=== PATIENT | female | born 1960 | race Caucasian/White ===

== ENCOUNTER 2017-05-12 13:13 | Outpatient (CLI) | payer OTHER ==
--- NOTE | 2017-05-13 15:48 | Mammography Report ---
DIGITAL SCREENING MAMMOGRAM: 05/12/2017 CLINICAL INDICATION: A 56-year-old nulliparous patient with history of bilateral reduction, for lakesha tobar. COMPARISON: 07/2015, 04/2014, 01/2013, 09/2010, 07/2009. TECHNIQUE: Routine CC and MLO projections were obtained of the breasts. FINDINGS: The breasts demonstrate scattered fibroglandular densities bilaterally. Postreduction negrete ges are stable. Coarse and punctate, typically benign calcifications are present. No suspicious brittnee s, clustered microcalcifications, or regions of architectural distortion are identified. IMPRESSION: BENIGN FINDINGS. RECOMMENDATION: ROUTINE ANNUAL SCREENING UNLESS OTHERWISE CLINICALLY INDICATED. BIRADS CATEGORY 2-BENIGN FINDINGS. STANDARD QUALIFYING STATEMENTS 1. This examination was reviewed with the aid of Computer-Aided Detection (CAD). 2. A negative or benign imaging report should not delay biopsy if clinically suspicious findings are present. Consider surgical consultation if warranted. More than 5% of cancers are not identified by i maging. 3. Dense breasts may obscure an underlying neoplasm. JOB #: [id number] EXT JOB #:[id number]
== END 2017-05-12 13:14 | disposition home or self-care (01) ==
LOC: DI 13:13
PROVIDERS: ATTEND Family Medicine
DX: Z12.31 Encounter for screening mammogram for malignant neoplasm of breast (principal)
CPT/HCPCS: 77067

== ENCOUNTER 2017-06-16 22:12 | Emergency (ER) | payer OTHER ==
[2017-06-16] MEDS ORDERED: SODIUM CHLORIDE FLUSH 0.9% 10 ML SYRINGE IVP ONE (22:48)
[2017-06-16] MEDS ORDERED: ONDANSETRON 4 MG/2 ML VIAL IVP STA (22:59)
[2017-06-16 23:07] LABS: BASOPHILS # (AUTO) 0.1 10^3/uL (0.0-0.1); BASOPHILS % (AUTO) 0.5 %; EOSINOPHILS # (AUTO) 0.3 10^3/uL (0.0-0.7); EOSINOPHILS % (AUTO) 1.9 %; HCT - HEMATOCRIT 41.5 % (37.0-47.0); HGB - HEMOGLOBIN 13.9 g/dL (12.0-16.0); LYMPHOCYTES % (AUTO) 29.1 %; MEAN CORPUSCULAR HEMOGLOBIN 27.4 pg (27.0-31.0); MEAN CORPUSCULAR HGB CONC 33.5 g/dL (32.0-36.0); MEAN CORPUSCULAR VOLUME 81.9 fL (81.0-99.0); MEAN PLATELET VOLUME 10.5 fL (7.9-10.8); MONOCYTES % (AUTO) 7.7 %; NEUTROPHILS # (AUTO) 8.3 10^3/uL (1.5-6.6); NEUTROPHILS % (AUTO) 60.8 %; RED BLOOD COUNT 5.07 10^6/uL (4.20-5.40); RED CELL DISTRIBUTION WIDTH 13.4 % (12.0-15.0); UNCORRECTED WHITE BLOOD COUNT 13.6 x10^3/uL; WHITE BLOOD COUNT 13.6 x10^3/uL (4.8-10.8)
--- NOTE | 2017-06-16 23:10 | XRAY Preliminary Report ---
Exam: XR Chest 1 View IMPRESSION: Elevation of the right hemidiaphragm, no acute cardiopulmonary process. [facility] SITE ID: [id number]
--- NOTE | 2017-06-16 23:13 | XRAY Report ---
EXAM: CHEST RADIOGRAPHY EXAM DATE: 06/16/2017 10:51 PM. CLINICAL HISTORY: Chest pain. COMPARISON: None. TECHNIQUE: 1 view. FINDINGS: Lungs/Pleura: Elevated right hemidiaphragm. The visualized lungs are clear. No pleural effusion or pn eumothorax. Mediastinum: Within exam limitations, cardiomediastinal contour is normal. Other: None. IMPRESSION: Elevation of the right hemidiaphragm, no acute cardiopulmonary process. [facility] Referring Provider Line: [phone] SITE ID: [id number]
[2017-06-16 23:18] LABS: ALBUMIN/GLOBULIN RATIO 1.2 (1.0-2.2); BILIRUBIN,TOTAL 0.7 mg/dL (0.2-1.0); CALCIUM 9.2 mg/dL (8.5-10.3); CREATININE 0.7 mg/dL (0.4-1.0); POTASSIUM 3.5 mmol/L (3.5-5.0); TOTAL PROTEIN 7.8 g/dL (6.7-8.2)
[2017-06-16] MEDS ORDERED: ONDANSETRON ODT 4 MG TABLET ONE (23:34)
[2017-06-16] MEDS ORDERED: ONDANSETRON 4 MG/2 ML VIAL ONE (23:36)
[2017-06-17] MEDS ORDERED: ACETAMINOPHEN 500 MG TABLET PO STA (00:06)
[2017-06-17] MEDS ORDERED: ACETAMINOPHEN 500 MG TABLET PO ONE (00:22)
--- NOTE | 2017-06-17 02:04 | ED Physician Documentation ---
PD HPI CHEST PAIN - Stated complaint Stated Complaint: CHEST PRESSURE - Chief complaint Chief Complaint: Cardiac - History obtained from History obtained from: Patient - History of Present Illness Timing - onset: How many hours ago (2) Timing - details: Abrupt onset, Now resolved Quality: Pressure Location: Substernal, Epigastric Worsened by: Eating Associated symptoms: Nausea. No: Shortness of air, Diaphoresis, Vomiting, Feeling faint / dizzy, General Weakness, Palpitations Similar symptoms before: Has not had sx before Recently seen: Not recently seen - Additional information Additional information: Patient is a 57 year old female with a history of borderline diabetes and htn who is presenting to the emergency department for chest pressure. patient states that she had some indigestion that felt like a gas bubble. patient states that the symptoms did not resolve right away and felt like pressure so she came to get checked out. Upon initial evaluation in the emergency department patient denied any acute complaints. Review of Systems Constitutional: denies: Fever, Chills Eyes: denies: Loss of vision, Decreased vision Ears: denies: Ear pain, Drainage/discharge Nose: denies: Rhinorrhea / runny nose, Congestion Throat: denies: Dental pain / toothache, Sore throat Cardiac: reports: Chest pain / pressure. denies: Palpitations, Calf pain Respiratory: denies: Dyspnea, Cough, Wheezing GI: reports: Nausea. denies: Abdominal Pain, Vomiting, Constipation, Diarrhea : denies: Dysuria, Frequency Skin: denies: Rash, Lesions Musculoskeletal: denies: Neck pain, Back pain, Extremity pain Neurologic: denies: Generalized weakness, Focal weakness, Numbness Immunocompromised: denies: Immunocompromised PD PAST MEDICAL HISTORY - Past Medical History Past Medical History: Yes Cardiovascular: Hypertension, Murmur Respiratory: None Endocrine/Autoimmune: Type 2 diabetes, HyPOthyroidism GI: GERD : None HEENT: None Psych: Anxiety Musculoskeletal: Osteoarthritis Derm: Rosacea - Past Surgical History General: Cholecystectomy 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, 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 surgery) HEENT: Other - Present Medications Home Medications: Ambulatory Orders Medication Instructions Recorded Confirmed Alprazolam 0.25 mg PO Q8HR PRN 05/08/15 06/16/17 Ascorbic Acid Chew [Vitamin C] 1,000 mg PO QDAC 05/08/15 06/16/17 Calcium Carb/Vitamin D3/Vit K1 1 each PO DAILY 05/08/15 06/16/17 [Calcium + D Soft Chewable Tab] Fish Oil/Dha/Epa [Fish Oil 1,200 1 each PO QDAC 05/08/15 06/16/17 mg Fish Oil] Hydrochlorothiazide 25 mg PO DAILY 05/08/15 06/16/17 Levothyroxine Sodium 75 mcg PO QDBREAKFAST 05/08/15 06/16/17 Lisinopril 40 mg PO DAILY 05/08/15 06/16/17 Omeprazole 20 mg PO QDAC 05/08/15 06/16/17 Potassium Chloride 10 meq PO DAILY 05/08/15 06/16/17 Pravastatin Sodium 40 mg PO QDAC 05/08/15 06/16/17 metFORMIN [Glucophage] 500 - 1,000 mg PO BIDWM 05/08/15 06/16/17 Amlodipine Besylate [Amlodipine 5 mg ORAL DAILY 06/16/17 06/16/17 Besylate] - Allergies Allergies/Adverse Reactions: Allergies Allergy/AdvReac Type Severity Reaction Status Date / Time acetaminophen AdvReac Nausea Verified 06/16/17 22:26 [From Tylenol-Codeine #3] codeine phosphate * AdvReac Nausea Verified 06/16/17 22:26 [From Tylenol-Codeine #3] - Social History Does the pt smoke?: No Smoking Status: Never smoker PD ED PE NORMAL - Vitals Vital signs reviewed: Yes - General General: Alert and oriented X 3, No acute distress, Well developed/nourished - HEENT HEENT: Atraumatic, PERRL, Moist mucous membranes, Pharynx benign - Neck Neck: Supple, no meningeal sign, No JVD - Cardiac Cardiac: RRR, No murmur - Respiratory Respiratory: No respiratory distress - Abdomen Abdomen: Soft, Non tender, Non distended - Derm Derm: Normal color, Warm and dry, No rash - Extremities Extremities: No deformity, Normal ROM s pain, No calf tenderness / cord - Neuro Neuro: Alert and oriented X 3, No motor deficit, No sensory deficit, Normal speech - Psych Psych: Normal mood, Normal affect Results - Vitals Vitals: Vital Signs - 24 hr 06/16/17 06/16/17 06/17/17 22:23 23:36 00:21 Temperature 36.5 C Heart Rate 74 61 59 L Respiratory 18 13 16 Rate Blood Pressure 183/77 H 152/62 H 136/61 H O2 Saturation 96 94 95 06/17/17 02:04 Temperature Heart Rate 60 Respiratory 14 Rate Blood Pressure 135/58 H O2 Saturation 97 Oxygen O2 Source Room air - EKG (time done) 2234 Rate: Rate (enter#) (63) Rhythm: NSR Shellman: Normal Intervals: LBBB Compare to prior EKG: Old EKG unavailable - Labs Labs: Laboratory Tests 06/16/17 06/16/17 06/16/17 22:48 22:48 22:48 WBC 13.6 H RBC 5.07 Hgb 13.9 Hct 41.5 MCV 81.9 MCH 27.4 MCHC 33.5 RDW 13.4 Plt Count 227 MPV 10.5 Neut # 8.3 H Lymph # 4.0 H Falls # 1.0 Eos # 0.3 Baso # 0.1 Absolute Nucleated RBC 0.00 Nucleated RBCs 0.0 Sodium 138 Potassium 3.5 Chloride 101 Carbon Dioxide 25 Anion Gap 12.0 BUN 12 Creatinine 0.7 Estimated GFR (MDRD) 86 L Glucose 172 H Calcium 9.2 Total Bilirubin 0.7 AST 88 H ALT 146 H Alkaline Phosphatase 89 Troponin I < 0.04 Total Protein 7.8 Albumin 4.2 Globulin 3.6 Albumin/Globulin Ratio 1.2 Lipase 28 06/17/17 01:18 WBC RBC Hgb Hct MCV MCH MCHC RDW Plt Count MPV Neut # Lymph # Falls # Eos # Baso # Absolute Nucleated RBC Nucleated RBCs Sodium Potassium Chloride Carbon Dioxide Anion Gap BUN Creatinine Estimated GFR (MDRD) Glucose Calcium Total Bilirubin AST ALT Alkaline Phosphatase Troponin I < 0.04 Total Protein Albumin Globulin Albumin/Globulin Ratio Lipase - Rads (name of study) chest x-ray Radiology: Final report received (elevation of right hemidiaphragm ) PD MEDICAL DECISION MAKING - ED course Complexity details: reviewed old records, reviewed results, re-evaluated patient , considered differential, d/w patient ED course: Patient was seen and examined at bedside. Patient was well appearing and in no distress. ekg was performed and showed a left bundle branch block which patient states she had before. it was negative via scarbossa's criteria. labs were drawn. chest x-ray showed no acute abnormality. troponin was negative. Patient had a few risk factors and was observed for another 3 hours. repeat troponin remained negative. Patient had low HEART and BENTLEY scores and was stable for outpatient work up. Departure - Departure Disposition: 01 Home, Self Care Clinical Impression: Chest pain Condition: Good Instructions: ED Chest Pain Atypical Unkn Cause Follow-Up: Jace Boyd DO [Primary Care Provider] - Within 3 Days Comments: Your diagnostics today were within normal limits indicating that the pressure is less likely to be cardiac in nature. that being said this is only a snapshot in time. I would recommend follow up with your pmd this week for a stress test and echocardiogram. You can return to the emergency department at any time for new, worsening or uncontrollable symptoms. Discharge Date/Time: 06/17/17 02:10
[2017-06-17 02:07] VITALS: BP 135/58
== END 2017-06-17 02:10 | disposition home or self-care (01) ==
LOC: ED 22:12
DX: R07.9 Chest pain, unspecified (principal); I44.7 Left bundle-branch block, unspecified; R94.31 Abnormal electrocardiogram [ECG] [EKG]; I10 Essential (primary) hypertension; E11.9 Type 2 diabetes mellitus without complications; Z79.84 Long term (current) use of oral hypoglycemic drugs; E03.9 Hypothyroidism, unspecified; K21.9 Gastro-esophageal reflux disease without esophagitis; M19.90 Unspecified osteoarthritis, unspecified site
CPT/HCPCS: 36415; 71010; 80053; 83690; 84484; 85025; 93005; 96374; 99284; 99285; A9270

== ENCOUNTER 2017-07-08 11:08 | Outpatient (CLI) | payer OTHER ==
--- NOTE | 2017-07-08 17:14 | Ultrasound Report ---
RIGHT UPPER QUADRANT ULTRASOUND: 07/08/2017 CLINICAL INDICATION: Abnormal LFTs. TECHNIQUE: Real-time scanning was performed with u.s. representative static images obtained. FINDINGS: The liver measures 12.9 cm. Hepatic echogenicity is diffusely increased, compatible with fatty infiltration. No focal parenchymal lesion or intrahepatic biliary dilatation is seen. The com mon bile duct measures 5 mm. The patient is status post cholecystectomy. The right kidney measures 11.5 cm, and demonstrates a small extrarenal pelvis. No free fluid is present. IMPRESSION: FATTY INFILTRATION OF THE LIVER. JOB #: [id number] EXT JOB #:[id number]
== END 2017-07-08 11:09 | disposition home or self-care (01) ==
LOC: DI 11:08
PROVIDERS: ATTEND Family Medicine
DX: R94.5 Abnormal results of liver function studies (principal); K76.0 Fatty (change of) liver, not elsewhere classified
CPT/HCPCS: 76705

== ENCOUNTER 2017-08-05 11:08 | Outpatient (CLI) | payer OTHER ==
--- NOTE | 2017-08-05 15:52 | CARDIAC PROCEDURE NOTE ---
DATE OF SERVICE: 08/05/2017 00:00:00 PRIMARY CARE PHYSICIAN: Jace Boyd DO. PROCEDURE: Treadmill MPS. REASON FOR PROCEDURE: Atypical chest pain. CARDIAC RISK FACTORS: Include age, diabetes, hypertension, and hyperlipidemia. PREVIOUS CARDIAC PROCEDURES: None. CLINICAL HISTORY: A 57-year-old female without known coronary artery disease. INITIAL RESTING VITAL SIGNS: Blood pressure 142/80, heart rate 76, height 64 inches, weight 220 pounds, BMI 37.8. PROCEDURE AND FINDINGS: The patient's identity and date verified. Consent signed. The patient performed treadmill exercise using a William protocol completing 7 minutes 19 seconds and completing an estimated workload of 7.5 metabolic equivalents. Maximum blood pressure was 200/76 with a heart rate of 138 beats per minute or 85% of maximum predicted heart rate for age. The blood pressure response to exercise was within normal limits. The patient stopped because she was tiring and she exercised for a full 60 seconds after Cardiolite was injected. The resting ECG demonstrated normal sinus rhythm with left bundle branch abnormality. ST segment depression could not be evaluated due to left bundle branch block. There was rare PA-C ectopy; 1 minute recovery heart rate was within normal limits. FINAL IMPRESSION 1. Nondiagnostic stress electrocardiogram for ischemia due to presence of left bundle branch block. 2. Negative stress test clinically for angina. 3. Rare ectopy. JOB #: [id number] EXT JOB #:[id number] MTDD
--- NOTE | 2017-08-06 08:21 | Nuclear Medicine Report ---
EXAM: SINGLE-ISOTOPE EXERCISE STRESS TEST. SINGLE-ISOTOPE AND ONE-DAY REST/STRESS MYOCARDIAL PERFUSION SCAN S WITH TOMOGRAPHIC IMAGING, QUANTITATIVE ANALYSIS, WALL MOTION ANALYSIS AND CALCULATION OF EJECTION F RACTION. EXAM DATE: 08/05/2017 01:35 PM. CLINICAL HISTORY: CHEST PAIN. COMPARISON: None available. TECHNIQUE: A rest myocardial perfusion scan was done with tomography after the intravenous administration of 10. 4 mCi Tc-99m sestamibi. After an appropriate delay, a treadmill exercise stress was performed according to department protoco l. The patient exercised for 7 minutes and 19 seconds. The maximum heart rate was 138 bpm, which was 85% of the maximum predicted heart rate of 163 bpm. At approximately peak heart rate, 39.1 mCi of Tc- 99m sestamibi was injected for stress myocardial perfusion scan. Motion correction was applied when a ppropriate. Gated tomographic images were obtained for wall motion analysis and computation of left ventricular e jection fraction. FINDINGS: There is some apical thinning noted. No convincing fixed or reversible perfusion defects ar e identified. Wall motion analysis demonstrates no focal wall motion abnormality The left ventricular end-diastolic volume is 68 cc. The left ventricular end-systolic volume is 19 cc . The left ventricular ejection fraction is calculated to be 72%. IMPRESSION: 1. No convincing fixed or reversible perfusion defects. 2. Normal left ventricular ejection fraction of 72%. 3. Normal segmental and global wall motion. 4. Normal left ventricular cavity size, no change with stress. [facility] Referring Provider Line: [phone] SITE ID: [id number]
== END 2017-08-05 11:09 | disposition home or self-care (01) ==
LOC: DI 11:08
PROVIDERS: ATTEND Family Medicine
DX: R07.89 Other chest pain (principal); E11.9 Type 2 diabetes mellitus without complications; I10 Essential (primary) hypertension; E78.5 Hyperlipidemia, unspecified; I44.7 Left bundle-branch block, unspecified
CPT/HCPCS: 78452; 93017; A9500

== ENCOUNTER 2017-08-13 11:17 | Outpatient (CLI) | payer OTHER ==
[2017-08-13 19:23] LABS: BASOPHILS % (AUTO) 0.5 %; EOSINOPHILS # (AUTO) 0.2 10^3/uL (0.0-0.7); EOSINOPHILS % (AUTO) 2.4 %; HCT - HEMATOCRIT 42.8 % (37.0-47.0); HGB - HEMOGLOBIN 14.3 g/dL (12.0-16.0); LYMPHOCYTES # (AUTO) 2.4 10^3/uL (1.5-3.5); MEAN CORPUSCULAR HEMOGLOBIN 27.8 pg (27.0-31.0); MEAN CORPUSCULAR HGB CONC 33.4 g/dL (32.0-36.0); MEAN CORPUSCULAR VOLUME 83.3 fL (81.0-99.0); MEAN PLATELET VOLUME 10.8 fL (7.9-10.8); MONOCYTES # (AUTO) 0.7 10^3/uL (0.0-1.0); MONOCYTES % (AUTO) 7.1 %; RED BLOOD COUNT 5.14 10^6/uL (4.20-5.40); RED CELL DISTRIBUTION WIDTH 13.5 % (12.0-15.0); UNCORRECTED WHITE BLOOD COUNT 9.4 x10^3/uL; WHITE BLOOD COUNT 9.4 x10^3/uL (4.8-10.8)
[2017-08-13 19:29] LABS: ALBUMIN/GLOBULIN RATIO 1.1 (1.0-2.2); BILIRUBIN,TOTAL 0.7 mg/dL (0.2-1.0); BUN - BLOOD UREA NITROGEN 10 mg/dL (6-20); CARBON DIOXIDE - CO2 27 mmol/L (21-32); CHLORIDE 101 mmol/L (101-111); CHOL/HDL RATIO 6.5 (<4.4); CHOLESTEROL 229 mg/dL; CREATININE 0.6 mg/dL (0.4-1.0); GFR - MDRD 103 (>89); GLUCOSE 183 mg/dL (70-100); HDL CHOLESTEROL 35 mg/dL; LDL/HDL RATIO 4.9 (<4.4); POTASSIUM 3.6 mmol/L (3.5-5.0); SODIUM 138 mmol/L (135-145); TOTAL PROTEIN 7.3 g/dL (6.7-8.2); TRIGLYCERIDES 116 mg/dL; VLDL CHOLESTEROL 23 mg/dL
[2017-08-13 19:42] LABS: HEMOGLOBIN A1C 1.08 g/dL
== END 2017-08-13 11:18 | disposition home or self-care (01) ==
LOC: LAB.WCP 11:17
PROVIDERS: ATTEND Family Medicine
DX: I10 Essential (primary) hypertension (principal); E78.5 Hyperlipidemia, unspecified; E11.9 Type 2 diabetes mellitus without complications; E03.9 Hypothyroidism, unspecified; R94.5 Abnormal results of liver function studies
CPT/HCPCS: 36415; 80053; 80061; 83036; 84443; 85025; 86317; 86704; 86803; 87340

== ENCOUNTER 2017-12-07 08:00 | Outpatient (CLI) | payer OTHER ==
[2017-12-07 19:19] LABS: BASOPHILS % (AUTO) 0.4 %; EOSINOPHILS # (AUTO) 0.2 10^3/uL (0.0-0.7); EOSINOPHILS % (AUTO) 1.9 %; HGB - HEMOGLOBIN 14.2 g/dL (12.0-16.0); LYMPHOCYTES # (AUTO) 2.8 10^3/uL (1.5-3.5); LYMPHOCYTES % (AUTO) 25.7 %; MEAN CORPUSCULAR HEMOGLOBIN 27.1 pg (27.0-31.0); MEAN CORPUSCULAR HGB CONC 32.8 g/dL (32.0-36.0); MEAN CORPUSCULAR VOLUME 82.8 fL (81.0-99.0); MEAN PLATELET VOLUME 10.7 fL (7.9-10.8); MONOCYTES # (AUTO) 0.7 10^3/uL (0.0-1.0); MONOCYTES % (AUTO) 6.4 %; NEUTROPHILS # (AUTO) 7.2 10^3/uL (1.5-6.6); NEUTROPHILS % (AUTO) 65.6 %; PLT - PLATELET COUNT 259 10^3/uL (130-450); RED BLOOD COUNT 5.23 10^6/uL (4.20-5.40); RED CELL DISTRIBUTION WIDTH 13.9 % (12.0-15.0)
[2017-12-07 19:54] LABS: % IRON SATURATION 14 % (20-50); ALBUMIN 4.2 g/dL (3.2-5.5); ALBUMIN/GLOBULIN RATIO 1.1 (1.0-2.2); ALKALINE PHOSPHATASE 85 IU/L (42-121); ALT ALANINE AMINOTRANSFERASE 134 IU/L (10-60); AST ASPARTATE AMINOTRANSFERASE 96 IU/L (10-42); BILIRUBIN,TOTAL 0.6 mg/dL (0.2-1.0); BUN - BLOOD UREA NITROGEN 15 mg/dL (6-20); CALCIUM 9.1 mg/dL (8.5-10.3); CARBON DIOXIDE - CO2 24 mmol/L (21-32); CHLORIDE 103 mmol/L (101-111); CHOL/HDL RATIO 5.9 (<4.4); CHOLESTEROL 232 mg/dL; CREATININE 0.7 mg/dL (0.4-1.0); GFR - MDRD 86 (>89); GLUCOSE 134 mg/dL (70-100); HDL CHOLESTEROL 39 mg/dL; IRON 62 ug/dL (28-170); LDL CHOLESTEROL,CALCULATED 169 mg/dL; LDL/HDL RATIO 4.3 (<4.4); SODIUM 138 mmol/L (135-145); TOTAL IRON BINDING CAPACITY 435 ug/dL (250-450); TRANSFERRIN 311 mg/dL (192-382); VLDL CHOLESTEROL 24 mg/dL
[2017-12-07 19:57] LABS: THYROID STIMULATING HORMONE 1.92 uIU/mL (0.34-5.60)
[2017-12-07 20:03] LABS: HB2 TOTAL 15.7 g/dL; HEMOGLOBIN A1C 0.89 g/dL; HEMOGLOBIN A1C % 7.3 % (4.6-6.2)
== END 2017-12-07 08:01 | disposition home or self-care (01) ==
LOC: LAB.WCP 08:00
PROVIDERS: ATTEND Family Medicine
DX: Z00.00 Encounter for general adult medical examination without abnormal findings (principal); E66.9 Obesity, unspecified
CPT/HCPCS: 36415; 80053; 80061; 82306; 83036; 83540; 83721; 83970; 84443; 84466; 85025

== ENCOUNTER 2017-12-11 13:21 | Outpatient (CLI) | payer OTHER | END 2017-12-11 13:22 | disposition home or self-care (01) | LOC: RT 13:21 | PROVIDERS: ATTEND Family Medicine | DX: E66.9 Obesity, unspecified (principal) | CPT/HCPCS: 94010 ==

== ENCOUNTER 2018-01-18 09:44 | Outpatient (CLI) | payer OTHER | END 2018-01-18 09:45 | disposition home or self-care (01) | LOC: SC 09:44 | PROVIDERS: ATTEND Nurse Practitioner Family | DX: G47.8 Other sleep disorders (principal); R53.83 Other fatigue; R06.83 Snoring | CPT/HCPCS: 99203; 99212 ==

== ENCOUNTER 2018-03-27 18:57 | Outpatient (CLI) | payer OTHER | END 2018-03-27 18:58 | disposition home or self-care (01) | LOC: SC 18:57 | PROVIDERS: ATTEND Internal Medicine Pulmonary Disease | DX: G47.33 Obstructive sleep apnea (adult) (pediatric) (principal); G47.61 Periodic limb movement disorder; I10 Essential (primary) hypertension; E11.9 Type 2 diabetes mellitus without complications; I49.9 Cardiac arrhythmia, unspecified | CPT/HCPCS: 95810 ==

== ENCOUNTER 2018-04-26 14:17 | Outpatient (CLI) | END 2018-04-26 14:18 | disposition home or self-care (01) ==

== ENCOUNTER 2018-06-14 14:14 | Outpatient (CLI) | payer OTHER | END 2018-06-14 14:15 | disposition home or self-care (01) | LOC: SC 14:14 | PROVIDERS: ATTEND Internal Medicine Pulmonary Disease | DX: G47.33 Obstructive sleep apnea (adult) (pediatric) (principal) | CPT/HCPCS: 99212; 99213 ==

== ENCOUNTER 2018-06-20 23:02 | Emergency (ER) | payer OTHER ==
[2018-06-20] MEDS ORDERED: SODIUM CHLORIDE 0.9% 1,000 ML IV ONE (23:29)
--- NOTE | 2018-06-20 23:38 | ED Physician Documentation ---
History of Present Illness - Stated complaint Stated Complaint: DIZZINESS - Chief complaint Chief Complaint: General - History obtained from History obtained from: Patient - Additonal information Additional information: 58-year-old female presents the emergency department for evaluation of dizziness which started today while at work. The patient reports a sensation of feeling lightheaded when moving positions like she may pass out. Currently at rest the patient has no acute symptoms. The patient denies headache, vertiginous symptoms, neck pain, chest pain or palpitations. Symptoms are described as moderate. No other associated symptoms. No specific triggering factors. Review of Systems Constitutional: denies: Fever Eyes: denies: Decreased vision Ears: denies: Ear pain Nose: denies: Congestion Throat: denies: Sore throat Cardiac: denies: Chest pain / pressure Respiratory: denies: Dyspnea GI: denies: Abdominal Pain, Nausea : denies: Dysuria Skin: denies: Rash Musculoskeletal: denies: Neck pain Neurologic: reports: Other (Dizziness). 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 surgery) HEENT: Other - Present Medications Home Medications: Ambulatory Orders Medication Instructions Recorded Confirmed ALPRAZolam [Alprazolam] 0.25 mg PO Q8HR PRN 05/08/15 06/16/17 Ascorbic Acid Chew [Vitamin C] 1,000 mg PO QDAC 05/08/15 06/16/17 Calcium Carb/Vitamin D3/Vit K1 1 each PO DAILY 05/08/15 06/16/17 [Calcium + D Soft Chewable Tab] Fish Oil/Dha/Epa [Fish Oil 1,200 1 each PO QDAC 05/08/15 06/16/17 mg Fish Oil] Hydrochlorothiazide 25 mg PO DAILY 05/08/15 06/16/17 Levothyroxine Sodium 75 mcg PO QDBREAKFAST 05/08/15 06/16/17 Lisinopril 40 mg PO DAILY 05/08/15 06/16/17 Omeprazole 20 mg PO QDAC 05/08/15 06/16/17 Potassium Chloride 10 meq PO DAILY 05/08/15 06/16/17 Pravastatin Sodium 40 mg PO QDAC 05/08/15 06/16/17 metFORMIN [Glucophage] 500 - 1,000 mg PO BIDWM 05/08/15 06/16/17 Amlodipine Besylate [Amlodipine 5 mg ORAL DAILY 06/16/17 06/16/17 Besylate] - Allergies Allergies/Adverse Reactions: Allergies Allergy/AdvReac Type Severity Reaction Status Date / Time acetaminophen AdvReac Nausea Verified 06/20/18 23:13 [From Tylenol-Codeine #3] codeine phosphate * AdvReac Nausea Verified 06/20/18 23:13 [From Tylenol-Codeine #3] - Social History Does the pt smoke?: No Smoking Status: Never smoker Does the pt drink ETOH?: No Does the pt have substance abuse?: No - Immunizations Immunizations are current?: Yes - POLST Patient has POLST: No PD ED PE NORMAL - General General: Alert and oriented X 3, No acute distress - HEENT HEENT: Atraumatic, PERRL, EOMI, Ears normal, Moist mucous membranes - Neck Neck: Supple, no meningeal sign, No bruit - Cardiac Cardiac: RRR, Strong equal pulses - Respiratory Respiratory: No respiratory distress, Clear bilaterally - Abdomen Abdomen: Soft, Non tender, Non distended - Derm Derm: Normal color - Extremities Extremities: No deformity, Normal ROM s pain, No edema - Neuro Neuro: Alert and oriented X 3, caser 2-12 intact, No motor deficit, No sensory deficit, Normal speech - Psych Psych: Normal mood Results - Vitals Vitals: Vital Signs - 24 hr 06/20/18 06/20/18 06/21/18 23:11 23:57 00:00 Temperature 36.8 C Heart Rate 77 Heart Rate [ 73 Standing] Heart Rate [ 68 Supine] Respiratory 17 Rate Blood Pressure 187/94 H Blood Pressure 157/77 H [Standing] Blood Pressure 147/69 H [Supine] O2 Saturation 97 06/21/18 06/21/18 06/21/18 00:03 00:31 00:56 Temperature Heart Rate 67 Heart Rate [ Standing] Heart Rate [ Supine] Respiratory 16 16 17 Rate Blood Pressure Blood Pressure [Standing] Blood Pressure [Supine] O2 Saturation 96 97 06/21/18 01:03 Temperature Heart Rate 64 Heart Rate [ Standing] Heart Rate [ Supine] Respiratory 15 Rate Blood Pressure 143/61 H Blood Pressure [Standing] Blood Pressure [Supine] O2 Saturation 97 Oxygen O2 Source Room air - EKG (time done) EKG Rate: Rate (enter#) Rhythm: NSR Intervals: Normal OK, QRS normal, LBBB Ischemia: Non specific changes Other comments: Other comments (Normal sinus rhythm with left bundle branch block and nonspecific changes, no acute ischemic changes when compared to a prior EKG) Compare to prior EKG: Unchanged from prior EKG - Labs Labs: Laboratory Tests 06/20/18 06/20/18 06/20/18 23:30 23:30 23:30 WBC 14.6 H RBC 4.96 Hgb 13.5 Hct 39.8 MCV 80.4 L MCH 27.3 MCHC 34.0 RDW 13.9 Plt Count 227 MPV 9.4 Neut # (Auto) 9.5 H Lymph # (Auto) 3.6 H [place]ett # (Auto) 0.9 Eos # (Auto) 0.3 Baso # (Auto) 0.3 H Absolute Nucleated RBC 0.00 Nucleated RBC % 0.0 Sodium 134 L Potassium 3.5 Chloride 98 L Carbon Dioxide 25 Anion Gap 11.0 BUN 18 Creatinine 0.7 Estimated GFR (MDRD) 86 L Glucose 141 H Calcium 9.1 Total Bilirubin 0.9 AST 29 ALT 46 Alkaline Phosphatase 90 Troponin I < 0.04 Total Protein 7.9 Albumin 3.8 Globulin 4.1 Albumin/Globulin Ratio 0.9 L Lipase 21 L Urine Color Urine Clarity Urine pH Ur Specific [place] Urine Protein Urine Glucose (UA) Urine Ketones Urine Occult Blood Urine Nitrite Urine Bilirubin Urine Urobilinogen Ur Leukocyte Esterase Ur Microscopic Review Urine Culture Comments 06/21/18 00:52 WBC RBC Hgb Hct MCV MCH MCHC RDW Plt Count MPV Neut # (Auto) Lymph # (Auto) [place] # (Auto) Eos # (Auto) Baso # (Auto) Absolute Nucleated RBC Nucleated RBC % Sodium Potassium Chloride Carbon Dioxide Anion Gap BUN Creatinine Estimated GFR (MDRD) Glucose Calcium Total Bilirubin AST ALT Alkaline Phosphatase Troponin I Total Protein Albumin Globulin Albumin/Globulin Ratio Lipase Urine Color YELLOW Urine Clarity CLEAR Urine pH 6.0 Ur Specific [place] <=1.005 Urine Protein NEGATIVE Urine Glucose (UA) NEGATIVE Urine Ketones NEGATIVE Urine Occult Blood NEGATIVE Urine Nitrite NEGATIVE Urine Bilirubin NEGATIVE Urine Urobilinogen 0.2 (NORMAL) Ur Leukocyte Esterase NEGATIVE Ur Microscopic Review NOT INDICATED Urine Culture Comments NOT INDICATED - Rads (name of study) CT head Radiology: Final report received (Normal head CT) PD MEDICAL DECISION MAKING - ED course ED course: Reevaluation the patient is resting comfortably, when the patient ambulated to the bathroom she had no further episodes. The patient's symptoms have resolved. The patient's workup does not reveal any acute abnormality that would necessitate admission to the hospital. I discussed with the patient the findings and plan for outpatient management. The patient understands and agrees. The patient appears appropriate for ongoing outpatient management. I discussed warning signs and recommended returning to the emergency department immediately for worsening or any concerns. - Sepsis Event Vital Signs: Vital Signs - 24 hr 06/20/18 06/20/18 06/21/18 23:11 23:57 00:00 Temperature 36.8 C Heart Rate 77 Heart Rate [ 73 Standing] Heart Rate [ 68 Supine] Respiratory 17 Rate Blood Pressure 187/94 H Blood Pressure 157/77 H [Standing] Blood Pressure 147/69 H [Supine] O2 Saturation 97 06/21/18 06/21/18 06/21/18 00:03 00:31 00:56 Temperature Heart Rate 67 Heart Rate [ Standing] Heart Rate [ Supine] Respiratory 16 16 17 Rate Blood Pressure Blood Pressure [Standing] Blood Pressure [Supine] O2 Saturation 96 97 06/21/18 01:03 Temperature Heart Rate 64 Heart Rate [ Standing] Heart Rate [ Supine] Respiratory 15 Rate Blood Pressure 143/61 H Blood Pressure [Standing] Blood Pressure [Supine] O2 Saturation 97 Oxygen O2 Source Room air Departure - Departure Disposition: 01 Home, Self Care Clinical Impression: Dizzy Condition: Good Instructions: ED Dizziness [facility] Follow-Up: Jace Boyd DO [Primary Care Provider] - Within 1 week Comments: Please return to the emergency department for worsening symptoms or any concerns
[2018-06-20 23:55] LABS: BASOPHILS # (AUTO) 0.3 10^3/uL (0.0-0.1); BASOPHILS % (AUTO) 1.7 %; EOSINOPHILS # (AUTO) 0.3 10^3/uL (0.0-0.7); HGB - HEMOGLOBIN 13.5 g/dL (12.0-16.0); LYMPHOCYTES # (AUTO) 3.6 10^3/uL (1.5-3.5); LYMPHOCYTES % (AUTO) 24.6 %; MEAN CORPUSCULAR HEMOGLOBIN 27.3 pg (27.0-31.0); MEAN CORPUSCULAR VOLUME 80.4 fL (81.0-99.0); MEAN PLATELET VOLUME 9.4 fL (7.9-10.8); MONOCYTES # (AUTO) 0.9 10^3/uL (0.0-1.0); MONOCYTES % (AUTO) 6.3 %; NEUTROPHILS # (AUTO) 9.5 10^3/uL (1.5-6.6); NEUTROPHILS % (AUTO) 65.4 %; PLT - PLATELET COUNT 227 10^3/uL (130-450); RED BLOOD COUNT 4.96 10^6/uL (4.20-5.40); RED CELL DISTRIBUTION WIDTH 13.9 % (12.0-15.0); WHITE BLOOD COUNT 14.6 x10^3/uL (4.8-10.8)
[2018-06-21 00:21] LABS: ALBUMIN 3.8 g/dL (3.2-5.5); ALBUMIN/GLOBULIN RATIO 0.9 (1.0-2.2); BILIRUBIN,TOTAL 0.9 mg/dL (0.2-1.0); CALCIUM 9.1 mg/dL (8.5-10.3); CREATININE 0.7 mg/dL (0.4-1.0); TOTAL PROTEIN 7.9 g/dL (6.7-8.2)
--- NOTE | 2018-06-21 00:37 | CT Report ---
Procedure Date: 06/20/2018 Accession Number: [id number] / [id number] Procedure: CT - Head W/O CPT Code: FULL RESULT: EXAM: CT HEAD EXAM DATE: 06/20/2018 11:52 PM. CLINICAL HISTORY: Dizziness COMPARISON: None. TECHNIQUE: Multiaxial CT images were obtained from the foramen magnum to the vertex. Reformats: Sagittal and coronal. IV contrast: None. In accordance with CT protocol optimization, one or more of the following dose reduction techniques were utilized for this exam: automated exposure control, adjustment of mA and/or KV based on patient size, or use of iterative reconstructive technique. FINDINGS: Parenchyma: No intraparenchymal hemorrhage. No evidence of mass, midline shift, or CT findings of infarction. Bailon-white differentiation is distinct. Extraaxial Spaces: Normal for age. No subdural or epidural collections identified. Ventricles: Normal in size and position. Sinuses and Orbits: Imaged paranasal sinuses, orbits, and mastoids show no significant abnormality. Bones: No evidence of fracture or calvarial defect. Other: None. IMPRESSION: Normal head CT. [facility]
[2018-06-21 01:05] LABS: BILIRUBIN,URINE NEGATIVE (NEGATIVE); GLUCOSE, URINE (UA) NEGATIVE (NEGATIVE); KETONES,URINE (UA) NEGATIVE (NEGATIVE); LEUKOCYTE ESTERASE, URINE NEGATIVE (NEGATIVE); NITRITE,URINE NEGATIVE (NEGATIVE); OCCULT BLOOD,URINE NEGATIVE (NEGATIVE); PROTEIN,URINE NEGATIVE (NEGATIVE); UROBILINOGEN,URINE 0.2 (NORMAL) E.U./dL (NORMAL)
[2018-06-21 01:19] LABS: CLARITY,URINE CLEAR (CLEAR)
[2018-06-21 02:21] VITALS: BP 144/69
== END 2018-06-21 01:35 | disposition home or self-care (01) ==
LOC: ED 23:02
DX: R42 Dizziness and giddiness (principal); I44.7 Left bundle-branch block, unspecified
CPT/HCPCS: 36415; 70450; 80053; 81001; 81003; 83690; 84484; 85025; 87086; 93005; 96360; 96361; 99283; 99284

== ENCOUNTER 2018-06-24 13:34 | Outpatient (CLI) | payer OTHER ==
[2018-06-24 14:34] LABS: BASOPHILS # (AUTO) 0.1 10^3/uL (0.0-0.1); BASOPHILS % (AUTO) 0.5 %; EOSINOPHILS # (AUTO) 0.2 10^3/uL (0.0-0.7); EOSINOPHILS % (AUTO) 1.8 %; HGB - HEMOGLOBIN 13.6 g/dL (12.0-16.0); LYMPHOCYTES # (AUTO) 2.3 10^3/uL (1.5-3.5); LYMPHOCYTES % (AUTO) 21.6 %; MEAN CORPUSCULAR HEMOGLOBIN 27.5 pg (27.0-31.0); MEAN CORPUSCULAR HGB CONC 34.1 g/dL (32.0-36.0); MEAN CORPUSCULAR VOLUME 80.7 fL (81.0-99.0); MEAN PLATELET VOLUME 9.6 fL (7.9-10.8); MONOCYTES # (AUTO) 0.9 10^3/uL (0.0-1.0); MONOCYTES % (AUTO) 8.1 %; NEUTROPHILS # (AUTO) 7.2 10^3/uL (1.5-6.6); PLT - PLATELET COUNT 203 10^3/uL (130-450); RED BLOOD COUNT 4.93 10^6/uL (4.20-5.40); RED CELL DISTRIBUTION WIDTH 13.7 % (12.0-15.0); WHITE BLOOD COUNT 10.6 x10^3/uL (4.8-10.8)
[2018-06-24 14:50] LABS: HB2 TOTAL 14.4 g/dL; HEMOGLOBIN A1C 0.87 g/dL; HEMOGLOBIN A1C % 7.7 % (4.6-6.2)
[2018-06-24 15:03] LABS: CHOL/HDL RATIO 5.6 (<4.4); CHOLESTEROL 214 mg/dL; HDL CHOLESTEROL 38 mg/dL; LDL CHOLESTEROL,CALCULATED 154 mg/dL; LDL/HDL RATIO 4.1 (<4.4); VLDL CHOLESTEROL 22 mg/dL
== END 2018-06-24 13:35 | disposition home or self-care (01) ==
LOC: LAB 13:34
PROVIDERS: ATTEND Family Medicine
DX: E11.9 Type 2 diabetes mellitus without complications (principal); E03.9 Hypothyroidism, unspecified; D72.829 Elevated white blood cell count, unspecified
CPT/HCPCS: 36415; 80061; 82043; 83036; 83721; 84443; 85025

== ENCOUNTER 2018-07-06 16:48 | Outpatient (CLI) | payer OTHER ==
--- NOTE | 2018-07-07 00:46 | XRAY Report ---
Reason: RIGHT KNEE PAIN Procedure Date: 07/06/2018 Accession Number: [id number] / [id number] Procedure: XR - Knee 3 View RT CPT Code: FULL RESULT: EXAM: RIGHT KNEE RADIOGRAPHY EXAM DATE: 07/06/2018 05:30 PM. CLINICAL HISTORY: RIGHT KNEE PAIN. COMPARISON: None. TECHNIQUE: 3 views. FINDINGS: Bones: Normal. No fractures or bone lesions. Joints: Mild osteoarthritis. No effusion. Soft Tissues: Normal. No soft tissue swelling. IMPRESSION: Mild osteoarthritis. [facility]
== END 2018-07-06 16:49 | disposition home or self-care (01) ==
LOC: DI 16:48
PROVIDERS: ATTEND Family Medicine
DX: M17.11 Unilateral primary osteoarthritis, right knee (principal)

== ENCOUNTER 2018-08-31 21:10 | Outpatient (CLI) | payer OTHER ==
--- NOTE | 2018-09-01 08:18 | XRAY Report ---
Reason: PAINFUL R FOOT MED AND LATERAL Procedure Date: 08/31/2018 Accession Number: [id number] / [id number] Procedure: XR - Foot 3 View RT CPT Code: FULL RESULT: EXAM: RIGHT FOOT RADIOGRAPHY EXAM DATE: 08/31/2018 09:27 PM. CLINICAL HISTORY: PAINFUL R FOOT MED AND LATERAL. COMPARISON: None. TECHNIQUE: 3 views. FINDINGS: Bones: No fractures or bone lesions. There is a small calcaneal spur at the insertion of the plantar fascia. Joints: There are mild degenerative changes of the first metatarsophalangeal joint. Soft Tissues: No soft tissue swelling. IMPRESSION: Mild osteoarthritis of the first metatarsophalangeal joint. Small calcaneal spur. [facility]
== END 2018-08-31 21:11 | disposition home or self-care (01) ==
LOC: DI 21:10
PROVIDERS: ATTEND Podiatrist
DX: M19.071 Primary osteoarthritis, right ankle and foot (principal)

== ENCOUNTER 2018-10-03 13:47 | Outpatient (CLI) | payer OTHER ==
[2018-10-03 14:14] LABS: BASOPHILS # (AUTO) 0.1 10^3/uL (0.0-0.1); BASOPHILS % (AUTO) 0.6 %; EOSINOPHILS # (AUTO) 0.2 10^3/uL (0.0-0.7); EOSINOPHILS % (AUTO) 1.7 %; HGB - HEMOGLOBIN 14.2 g/dL (12.0-16.0); LYMPHOCYTES # (AUTO) 2.5 10^3/uL (1.5-3.5); LYMPHOCYTES % (AUTO) 23.6 %; MEAN CORPUSCULAR HEMOGLOBIN 27.4 pg (27.0-31.0); MEAN CORPUSCULAR HGB CONC 34.1 g/dL (32.0-36.0); MEAN CORPUSCULAR VOLUME 80.4 fL (81.0-99.0); MEAN PLATELET VOLUME 9.2 fL (7.9-10.8); MONOCYTES # (AUTO) 0.6 10^3/uL (0.0-1.0); NEUTROPHILS # (AUTO) 7.3 10^3/uL (1.5-6.6); NEUTROPHILS % (AUTO) 68.1 %; PLT - PLATELET COUNT 248 10^3/uL (130-450); RED BLOOD COUNT 5.19 10^6/uL (4.20-5.40); WHITE BLOOD COUNT 10.7 x10^3/uL (4.8-10.8)
[2018-10-03 14:23] LABS: HB2 TOTAL 15.7 g/dL; HEMOGLOBIN A1C 0.88 g/dL; HEMOGLOBIN A1C % 7.3 % (4.6-6.2)
[2018-10-03 14:25] LABS: ALBUMIN 4.2 g/dL (3.2-5.5); ALBUMIN/GLOBULIN RATIO 1.2 (1.0-2.2); ALKALINE PHOSPHATASE 91 IU/L (42-121); ALT ALANINE AMINOTRANSFERASE 37 IU/L (10-60); AST ASPARTATE AMINOTRANSFERASE 31 IU/L (10-42); BILIRUBIN,TOTAL 0.7 mg/dL (0.2-1.0); BUN - BLOOD UREA NITROGEN 21 mg/dL (6-20); CALCIUM 9.1 mg/dL (8.5-10.3); CARBON DIOXIDE - CO2 25 mmol/L (21-32); CHLORIDE 103 mmol/L (101-111); CHOL/HDL RATIO 5.5 (<4.4); CHOLESTEROL 216 mg/dL; CREATININE 0.8 mg/dL (0.4-1.0); GFR - MDRD 74 (>89); GLUCOSE 134 mg/dL (70-100); HDL CHOLESTEROL 39 mg/dL; LDL CHOLESTEROL,CALCULATED 151 mg/dL; LDL/HDL RATIO 3.9 (<4.4); SODIUM 138 mmol/L (135-145); TOTAL PROTEIN 7.7 g/dL (6.7-8.2); VLDL CHOLESTEROL 26 mg/dL
== END 2018-10-03 13:48 | disposition home or self-care (01) ==
LOC: LAB 13:47
PROVIDERS: ATTEND Family Medicine
DX: Z00.00 Encounter for general adult medical examination without abnormal findings (principal); E11.9 Type 2 diabetes mellitus without complications
CPT/HCPCS: 36415; 80053; 80061; 83036; 83721; 85025

== ENCOUNTER 2018-10-26 11:03 | Outpatient (CLI) | payer OTHER ==
--- NOTE | 2018-10-27 08:36 | Mammography Report ---
Reason: ANNUAL SCREENING Procedure Date: 10/26/2018 Accession Number: [id number] / [id number] Procedure: DENNIS - Screening Mammo Dig Bilat CPT Code: FULL RESULT: EXAM: Screening Mammo Dig Bilat DATE: 10/26/2018 11:26 AM CLINICAL HISTORY: Screening. Family history breast cancer maternal aunt in her 60s and maternal cousin in her 30s. No personal history of breast cancer. History of prior bilateral reduction. TECHNIQUE: Bilateral CC and MLO views were obtained. COMPARISON: 05/12/2017 through 07/26/2009 FINDINGS: The breasts demonstrate scattered fibroglandular densities bilaterally. Bilateral breasts: There are stable operative changes after bilateral reduction mammoplasty. There are no suspicious masses, calcifications or areas of distortion. IMPRESSION: Benign findings RECOMMENDATION: Routine annual screening unless otherwise clinically indicated. BI-RADS CATEGORY 2: Benign findings STANDARD QUALIFYING STATEMENTS: 1. This examination was not reviewed with the aid of Computer-Aided Detection (CAD). 2. A negative or benign imaging report should not preclude biopsy if clinically suspicious findings are present. 3. Dense breasts may obscure an underlying neoplasm. 4. This examination was reviewed without the aid of 3D breast imaging (tomosynthesis).
== END 2018-10-26 11:04 | disposition home or self-care (01) ==
LOC: DI 11:03
DX: Z12.31 Encounter for screening mammogram for malignant neoplasm of breast (principal); Z80.3 Family history of malignant neoplasm of breast
CPT/HCPCS: 77067

== ENCOUNTER 2018-12-23 11:18 | Outpatient (CLI) | payer BC ==
--- NOTE | 2018-12-23 14:45 | XRAY Report ---
Reason: KNEE PX.BILATERAL/ANKLE PX LEFT Procedure Date: 12/23/2018 Accession Number: [id number] / [id number] Procedure: WCP - Shoulder 3 View RT CPT Code: FULL RESULT: EXAM: RIGHT SHOULDER RADIOGRAPHY EXAM DATE: 12/23/2018 11:47 AM. CLINICAL HISTORY: Pain. COMPARISON: None. TECHNIQUE: 3 views. FINDINGS: Bones: Osteopenia. No definite fracture or other bone lesion. Joints: Moderate degenerative changes. Anatomic alignment. Soft tissues: Clear vision of his lung. IMPRESSION: Moderate degenerative changes. RADIA
--- NOTE | 2018-12-23 14:48 | XRAY Report ---
Reason: ARM PX,RIGHT Procedure Date: 12/23/2018 Accession Number: [id number] / [id number] Procedure: WCP - Elbow 2 View RT CPT Code: FULL RESULT: EXAM: RIGHT ELBOW RADIOGRAPHY EXAM DATE: 12/23/2018 11:47 AM. CLINICAL HISTORY: ARM PX,RIGHT. COMPARISON: None. TECHNIQUE: 3 views. FINDINGS: Bones: Normal. No fractures or bone lesions. Joints: Normal. No effusion. No subluxation. Soft Tissues: Soft tissue calcifications adjacent to medial and lateral epicondyles. IMPRESSION: Calcific epicondylitis. RADIA
== END 2018-12-23 11:19 | disposition home or self-care (01) ==
LOC: DI.WCP 11:18
PROVIDERS: ATTEND Physician Assistant
DX: M19.011 Primary osteoarthritis, right shoulder (principal); M25.821 Other specified joint disorders, right elbow

== ENCOUNTER 2019-03-13 14:07 | Outpatient (CLI) | payer BC ==
[2019-03-13 15:29] LABS: CREATININE 0.6 mg/dL (0.4-1.0)
== END 2019-03-13 14:08 | disposition home or self-care (01) ==
LOC: LAB 14:07
PROVIDERS: ATTEND Family Medicine
DX: M75.101 Unspecified rotator cuff tear or rupture of right shoulder, not specified as traumatic (principal)
CPT/HCPCS: 36415; 82565

== ENCOUNTER 2019-03-15 12:15 | Outpatient (CLI) | payer BC ==
[2019-03-15] MEDS ORDERED: GADOPENTETATE DIMEGLUMINE 5 ML VIAL IVP ONE ×3 (12:31→14:36)
[2019-03-15] MEDS ORDERED: IOTHALAMATE MEGLUMINE 50 ML VIAL ONE (12:31)
[2019-03-15] MEDS ORDERED: BUFFERED LIDOCAINE 10 ML SYRINGE ONE (12:31)
[2019-03-15] MEDS ORDERED: IOTHALAMATE MEGLUMINE 50 ML VIAL IVP ONE ×2 (14:36)
[2019-03-15] MEDS ORDERED: BUFFERED LIDOCAINE 10 ML SYRINGE IU ONE ×2 (14:36)
--- NOTE | 2019-03-15 15:22 | XRAY Report ---
Reason: ROTATOR CUFF SYNDROME, RIGHT Procedure Date: 03/15/2019 Accession Number: [id number] / [id number] Procedure: FL - Arthrogram Needle Placement CPT Code: FULL RESULT: EXAM: RIGHT SHOULDER ARTHROGRAPHIC INJECTION WITH FLUOROSCOPIC GUIDANCE EXAM DATE: 03/15/2019 01:25 PM. CLINICAL HISTORY: ROTATOR CUFF SYNDROME, RIGHT. COMPARISON: ARTHROGRAM SHOULDER RT 03/15/2019 1:37 PM. TECHNIQUE: The risks, benefits, and alternatives of the procedure were discussed with the patient. All questions were answered. Written and verbal consent were obtained. The glenohumeral joint was marked under fluoroscopy and prepped and draped in a sterile manner. Local anesthesia was performed with 1% lidocaine. A 22-gauge needle was then inserted into the glenohumeral joint. 10 mL of a solution containing 25% 1% lidocaine, 25% iodinated contrast, and a 1:200 dilution of gadolinium contrast in sterile saline was then injected. The needle was removed without immediate complication. Other: None. Fluoroscopy Time: 0.4 minutes. Number of Images: 7. FINDINGS: Bones and joints: No fracture or subluxation. Injection: Fluoroscopic images demonstrate needle placement and contrast in the glenohumeral joint. No contrast extravasation outside of the glenohumeral joint. IMPRESSION: Successful fluoroscopically guided arthrographic injection of the shoulder. RADIA
--- NOTE | 2019-03-16 10:02 | MRI Report ---
Reason: ROTATOR CUFF SYNDROME, RIGHT Procedure Date: 03/15/2019 Accession Number: [id number] / [id number] Procedure: MRI - Arthrogram Shoulder RT CPT Code: FULL RESULT: EXAM: RIGHT SHOULDER MRI ARTHROGRAM WITH CONTRAST EXAM DATE: 03/15/2019 02:15 PM. CLINICAL HISTORY: Rotator cuff syndrome, right. COMPARISON: SHOULDER 3 VIEW RT 12/23/2018 11:25 AM. TECHNIQUE: Multiplanar, multisequence T1-weighted and fluid-sensitive sequences of the shoulder after an arthrographic injection of dilute gadolinium, dictated under a separate exam. Other: None. FINDINGS: Rotator cuff: There is fraying at the bursal surface of the supraspinatus. Tiny thin focus of full-thickness perforation extending from the articular to the bursal surface of the distal supraspinatus tendon. This is ill-defined because of the tiny nature of the tear and patient motion. Approximate dimension of the tear at the articular surface is 4 x 4 mm with only a tiny linear extension across the substance of the distal tendon with a small amount of fluid and trace amount of contrast in the subacromial subdeltoid bursa adjacent to the tear. No additional rotator cuff tears are identified. No significant measurable or retracted tear. No rotator cuff muscle atrophy or fatty replacement. Long head biceps tendon: Intact demonstrating normal course, signal and morphology. Labrum: Intact. No tear is identified. Bones and articular surfaces: No significant articular cartilage defects are seen. Acromioclavicular joint: Mild degenerative change. Type II acromion. IMPRESSION: 1. Fraying at the distal articular surface of the supraspinatus with a punctate full-thickness perforation allowing passage of a tiny volume of contrast into the subacromial subdeltoid bursa. RADIA
== END 2019-03-15 12:16 | disposition home or self-care (01) ==
LOC: DI 12:15
PROVIDERS: ATTEND Family Medicine
DX: M75.101 Unspecified rotator cuff tear or rupture of right shoulder, not specified as traumatic (principal)
CPT/HCPCS: 23350; 73222; 77002; Q9961

== ENCOUNTER 2019-03-31 14:18 | Outpatient (CLI) | payer BC ==
[2019-03-31 14:35] LABS: BASOPHILS # (AUTO) 0.1 10^3/uL (0.0-0.1); BASOPHILS % (AUTO) 0.8 %; EOSINOPHILS # (AUTO) 0.2 10^3/uL (0.0-0.7); EOSINOPHILS % (AUTO) 1.5 %; HGB - HEMOGLOBIN 14.6 g/dL (12.0-16.0); LYMPHOCYTES # (AUTO) 2.8 10^3/uL (1.5-3.5); LYMPHOCYTES % (AUTO) 23.6 %; MEAN CORPUSCULAR HEMOGLOBIN 26.8 pg (27.0-31.0); MEAN CORPUSCULAR HGB CONC 33.3 g/dL (32.0-36.0); MEAN CORPUSCULAR VOLUME 80.4 fL (81.0-99.0); MONOCYTES # (AUTO) 0.8 10^3/uL (0.0-1.0); MONOCYTES % (AUTO) 7.1 %; NEUTROPHILS # (AUTO) 7.9 10^3/uL (1.5-6.6); PLT - PLATELET COUNT 264 10^3/uL (130-450); RED BLOOD COUNT 5.45 10^6/uL (4.20-5.40); RED CELL DISTRIBUTION WIDTH 13.5 % (12.0-15.0); WHITE BLOOD COUNT 11.7 x10^3/uL (4.8-10.8)
[2019-03-31 14:53] LABS: HEMOGLOBIN A1C 0.99 g/dL; HEMOGLOBIN A1C % 7.8 % (4.6-6.2)
[2019-03-31 15:06] LABS: ALBUMIN 4.3 g/dL (3.2-5.5); ALBUMIN/GLOBULIN RATIO 1.1 (1.0-2.2); ALKALINE PHOSPHATASE 87 IU/L (42-121); ALT ALANINE AMINOTRANSFERASE 44 IU/L (10-60); AST ASPARTATE AMINOTRANSFERASE 40 IU/L (10-42); BILIRUBIN,TOTAL 0.8 mg/dL (0.2-1.0); BUN - BLOOD UREA NITROGEN 15 mg/dL (6-20); CARBON DIOXIDE - CO2 23 mmol/L (21-32); CHLORIDE 102 mmol/L (101-111); CHOL/HDL RATIO 5.4 (<4.4); CHOLESTEROL 248 mg/dL; CREATININE 0.7 mg/dL (0.4-1.0); GFR - MDRD 86 (>89); GLUCOSE 159 mg/dL (70-100); HDL CHOLESTEROL 46 mg/dL; LDL CHOLESTEROL,CALCULATED 179 mg/dL; LDL/HDL RATIO 3.9 (<4.4); SODIUM 140 mmol/L (135-145); TOTAL PROTEIN 8.1 g/dL (6.7-8.2); VLDL CHOLESTEROL 23 mg/dL
== END 2019-03-31 14:19 | disposition home or self-care (01) ==
LOC: LAB 14:18
PROVIDERS: ATTEND Family Medicine
DX: E11.9 Type 2 diabetes mellitus without complications (principal)
CPT/HCPCS: 36415; 80053; 80061; 82043; 83036; 83721; 84443; 85025

== ENCOUNTER 2019-11-10 15:04 | Outpatient (CLI) | payer BC ==
--- NOTE | 2019-11-15 13:54 | Mammography Report ---
Reason: SCREENING MAMMO Procedure Date: 11/10/2019 Accession Number: [id number] / [id number] Procedure: DENNIS - Screening Mammo w/Karson CPT Code: Final Report FULL RESULT: EXAM: Screening Mammo w/Karson DATE: 11/10/2019 3:47 PM CLINICAL HISTORY: The patient is an asymptomatic 59-year-old. Nulliparous. Second degree family history breast cancer. Prior bilateral reduction mammoplasty. TECHNIQUE: (B) - Bilateral CC and MLO views were obtained. COMPARISON: 10/26/2018, 05/12/2017, 07/24/2015 PARENCHYMAL PATTERN: (A) - The breasts demonstrate scattered fibroglandular densities bilaterally. FINDINGS: The pattern of asymmetry secondary to reduction mammoplasty is stable. Evolving fat necrosis noted in the right breast. Few benign calcifications. There are no suspicious masses, calcifications, or areas of distortion. IMPRESSION: Benign findings. BI-RADS category 2. RECOMMENDATION: (ANNUAL) - Recommend routine annual screening mammography. BI-RADS CATEGORY: (2) - Benign Findings. STANDARD QUALIFYING STATEMENTS: A negative or benign imaging report should not preclude biopsy if clinically suspicious findings are present. Dense breasts may obscure an underlying neoplasm. This examination was reviewed with the aid of 3D breast imaging (tomosynthesis).
== END 2019-11-10 15:05 | disposition home or self-care (01) ==
LOC: DI 15:04
DX: Z12.31 Encounter for screening mammogram for malignant neoplasm of breast (principal); Z80.3 Family history of malignant neoplasm of breast
CPT/HCPCS: 77063; 77067

== ENCOUNTER 2020-04-30 07:59 | Outpatient (CLI) | payer BC ==
[2020-04-30 12:03] LABS: BASOPHILS % (AUTO) 0.3 %; EOSINOPHILS # (AUTO) 0.2 10^3/uL (0.0-0.7); EOSINOPHILS % (AUTO) 1.9 %; HGB - HEMOGLOBIN 14.3 g/dL (12.0-16.0); LYMPHOCYTES # (AUTO) 2.3 10^3/uL (1.5-3.5); LYMPHOCYTES % (AUTO) 24.7 %; MEAN CORPUSCULAR HEMOGLOBIN 27.3 pg (27.0-31.0); MEAN CORPUSCULAR HGB CONC 32.4 g/dL (32.0-36.0); MEAN CORPUSCULAR VOLUME 84.5 fL (81.0-99.0); MONOCYTES # (AUTO) 0.8 10^3/uL (0.0-1.0); MONOCYTES % (AUTO) 8.5 %; NEUTROPHILS # (AUTO) 6.1 10^3/uL (1.5-6.6); NEUTROPHILS % (AUTO) 64.4 %; PLT - PLATELET COUNT 229 10^3/uL (130-450); RED BLOOD COUNT 5.23 10^6/uL (4.20-5.40); RED CELL DISTRIBUTION WIDTH 13.2 % (12.0-15.0); WHITE BLOOD COUNT 9.4 x10^3/uL (4.8-10.8)
[2020-04-30 12:30] LABS: ALBUMIN 3.9 g/dL (3.2-5.5); ALBUMIN/GLOBULIN RATIO 1.1 (1.0-2.2); BILIRUBIN,TOTAL 0.8 mg/dL (0.2-1.0); CALCIUM 8.9 mg/dL (8.5-10.3); CREATININE 0.6 mg/dL (0.4-1.0); TOTAL PROTEIN 7.5 g/dL (6.7-8.2)
[2020-04-30 12:31] LABS: HB2 TOTAL 14.5 g/dL; HEMOGLOBIN A1C 1.35 g/dL; HEMOGLOBIN A1C % 10.7 % (4.6-6.2)
== END 2020-04-30 23:59 | disposition home or self-care (01) ==
LOC: LAB.WCP 07:59
PROVIDERS: ATTEND Family Medicine
DX: E11.9 Type 2 diabetes mellitus without complications (principal)
CPT/HCPCS: 36415; 80053; 82043; 83036; 84443; 85025

== ENCOUNTER 2020-10-01 08:00 | Outpatient (CLI) | payer BC ==
[2020-10-01 12:26] LABS: HEMOGLOBIN A1c% 8.6 % (4.27-6.07)
[2020-10-01 12:36] LABS: ALBUMIN/GLOBULIN RATIO 1.1 (1.0-2.2); BILIRUBIN,TOTAL 0.9 mg/dL (0.2-1.0); CREATININE 0.7 mg/dL (0.4-1.0); TOTAL PROTEIN 7.7 g/dL (6.7-8.2)
== END 2020-10-01 23:59 | disposition home or self-care (01) ==
LOC: LAB.WCP 08:00
PROVIDERS: ATTEND Family Medicine
DX: E11.9 Type 2 diabetes mellitus without complications (principal)
CPT/HCPCS: 36415; 80053; 83036

== ENCOUNTER 2020-12-16 13:57 | Outpatient (CLI) | payer BC | END 2020-12-16 13:58 | disposition home or self-care (01) | LOC: NS 13:57 | PROVIDERS: ATTEND Family Medicine | DX: Z71.3 Dietary counseling and surveillance (principal); K76.0 Fatty (change of) liver, not elsewhere classified; E11.8 Type 2 diabetes mellitus with unspecified complications; R79.89 Other specified abnormal findings of blood chemistry | CPT/HCPCS: 97802 ==

== ENCOUNTER 2020-12-31 07:16 | Outpatient (CLI) | payer BC ==
[2020-12-31 11:37] LABS: BASOPHILS % (AUTO) 0.3 %; EOSINOPHILS # (AUTO) 0.3 10^3/uL (0.0-0.7); EOSINOPHILS % (AUTO) 3.3 %; HCT - HEMATOCRIT 44.3 % (37.0-47.0); HGB - HEMOGLOBIN 14.3 g/dL (12.0-16.0); LYMPHOCYTES # (AUTO) 2.3 10^3/uL (1.5-3.5); LYMPHOCYTES % (AUTO) 22.6 %; MEAN CORPUSCULAR HEMOGLOBIN 27.3 pg (27.0-31.0); MEAN CORPUSCULAR HGB CONC 32.3 g/dL (32.0-36.0); MEAN CORPUSCULAR VOLUME 84.7 fL (81.0-99.0); MEAN PLATELET VOLUME 12.1 fL (7.9-10.8); MONOCYTES # (AUTO) 0.7 10^3/uL (0.0-1.0); MONOCYTES % (AUTO) 7.2 %; NEUTROPHILS # (AUTO) 6.6 10^3/uL (1.5-6.6); NEUTROPHILS % (AUTO) 66.4 %; PLT - PLATELET COUNT 251 10^3/uL (130-450); RED BLOOD COUNT 5.23 10^6/uL (4.20-5.40); RED CELL DISTRIBUTION WIDTH 13.3 % (12.0-15.0)
[2020-12-31 12:00] LABS: ALBUMIN 4.1 g/dL (3.2-5.5); ALBUMIN/GLOBULIN RATIO 1.2 (1.0-2.2); ALKALINE PHOSPHATASE 91 IU/L (42-121); ALT ALANINE AMINOTRANSFERASE 76 IU/L (10-60); AST ASPARTATE AMINOTRANSFERASE 51 IU/L (10-42); BILIRUBIN,TOTAL 0.7 mg/dL (0.2-1.0); BUN - BLOOD UREA NITROGEN 15 mg/dL (6-20); CALCIUM 9.6 mg/dL (8.5-10.3); CARBON DIOXIDE - CO2 26 mmol/L (21-32); CHLORIDE 101 mmol/L (101-111); CHOLESTEROL 206 mg/dL; CREATININE 0.7 mg/dL (0.4-1.0); GFR - MDRD 85 (>89); GLUCOSE 159 mg/dL (70-100); HDL CHOLESTEROL 41 mg/dL; LDL CHOLESTEROL,CALCULATED 148 mg/dL; LDL/HDL RATIO 3.6 (<4.4); POTASSIUM 3.7 mmol/L (3.5-5.0); SODIUM 142 mmol/L (135-145); TOTAL PROTEIN 7.6 g/dL (6.7-8.2); TRIGLYCERIDES 83 mg/dL; VLDL CHOLESTEROL 17 mg/dL
[2020-12-31 12:04] LABS: THYROID STIMULATING HORMONE 2.06 uIU/mL (0.34-5.60)
[2020-12-31 12:48] LABS: ESTIMATED AVERAGE GLUCOSE 174 mg/dL (70-100); HEMOGLOBIN A1c% 7.7 % (4.27-6.07)
[2021-01-10 16:41] LABS: CREATININE,URINE 197.3 mg/dL; MICROALBUMIN,URINE 0.4 mg/dL (0-300.0)
== END 2020-12-31 07:17 | disposition home or self-care (01) ==
LOC: LAB.N 07:16
PROVIDERS: ATTEND Family Medicine
DX: E11.8 Type 2 diabetes mellitus with unspecified complications (principal)
CPT/HCPCS: 36415; 80053; 80061; 82043; 82570; 83036; 83721; 84443; 85025

== ENCOUNTER 2021-01-28 08:13 | Outpatient (CLI) | payer BC ==
--- NOTE | 2021-01-29 13:39 | Mammography Report ---
BILATERAL DIGITAL SCREENING MAMMOGRAM 3D/2D: 01/28/2021 CLINICAL: Routine screening. Comparison is made to exams dated: 11/10/2019 mammogram, 10/26/2018 mammogram, 05/12/2017 mammogram - [facility], 07/24/2015 mammogram, 04/16/2014 mammogram, and 01/23/2013 mammogram - [facility]. There are scattered fibroglandular elements in both breasts. There are benign calcifications in both breasts. There also are benign post operative findings in sherri th breasts. No significant masses, calcifications, or other findings are seen in either breast. There has been no significant interval change. IMPRESSION: BENIGN There is no mammographic evidence of malignancy. A 1 year screening mammogram is recommended. This exam was interpreted at Station ID: [id number]. NOTE: For mammograms, a report in lay terms will be sent to the patient. Approximately 15% of breast malignancies will not be visualized mammographically. In the management of a palpable breast mass, a negative mammogram must not discourage biopsy of a clinically suspicious lesion. Electronically Signed By: Compa Tai M.D. ddp/penrad:01/28/2021 09:48:04 ACR BI-RADS Category 2: Benign Finding(s) 3342F PARENCHYMAL PATTERN: (A) - The breast(s) demonstrate(s) scattered fibroglandular densities. BI-RADS CATEGORY: (2) - 2 RECOMMENDATION: (ANNUAL) - Recommend routine annual screening mammography. [id number] 1 year screening LATERALITY: (B)
== END 2021-01-28 08:14 | disposition home or self-care (01) ==
LOC: DI.N 08:13
DX: Z12.31 Encounter for screening mammogram for malignant neoplasm of breast (principal)

== ENCOUNTER 2021-04-01 08:00 | Outpatient (CLI) | payer BC ==
[2021-04-01 12:14] LABS: BASOPHILS % (AUTO) 0.4 %; EOSINOPHILS # (AUTO) 0.3 10^3/uL (0.0-0.7); EOSINOPHILS % (AUTO) 3.2 %; HGB - HEMOGLOBIN 14.3 g/dL (12.0-16.0); LYMPHOCYTES # (AUTO) 2.5 10^3/uL (1.5-3.5); LYMPHOCYTES % (AUTO) 25.1 %; MEAN CORPUSCULAR HEMOGLOBIN 27.2 pg (27.0-31.0); MEAN CORPUSCULAR HGB CONC 31.8 g/dL (32.0-36.0); MEAN CORPUSCULAR VOLUME 85.7 fL (81.0-99.0); MEAN PLATELET VOLUME 12.8 fL (7.9-10.8); MONOCYTES # (AUTO) 0.7 10^3/uL (0.0-1.0); MONOCYTES % (AUTO) 6.9 %; NEUTROPHILS # (AUTO) 6.5 10^3/uL (1.5-6.6); NEUTROPHILS % (AUTO) 64.2 %; PLT - PLATELET COUNT 277 10^3/uL (130-450); RED BLOOD COUNT 5.25 10^6/uL (4.20-5.40); RED CELL DISTRIBUTION WIDTH 13.6 % (12.0-15.0); WHITE BLOOD COUNT 10.1 x10^3/uL (4.8-10.8)
[2021-04-01 12:33] LABS: ALBUMIN 4.3 g/dL (3.2-5.5); ALBUMIN/GLOBULIN RATIO 1.3 (1.0-2.2); ALKALINE PHOSPHATASE 82 IU/L (42-121); ALT ALANINE AMINOTRANSFERASE 75 IU/L (10-60); AST ASPARTATE AMINOTRANSFERASE 50 IU/L (10-42); BILIRUBIN,TOTAL 0.8 mg/dL (0.2-1.0); BUN - BLOOD UREA NITROGEN 17 mg/dL (6-20); CALCIUM 9.3 mg/dL (8.5-10.3); CARBON DIOXIDE - CO2 25 mmol/L (21-32); CHLORIDE 101 mmol/L (101-111); CHOL/HDL RATIO 5.4 (<4.4); CHOLESTEROL 234 mg/dL; CREATININE 0.8 mg/dL (0.4-1.0); GFR - MDRD 73 (>89); GLUCOSE 154 mg/dL (70-100); HDL CHOLESTEROL 43 mg/dL; LDL CHOLESTEROL,CALCULATED 168 mg/dL; LDL/HDL RATIO 3.9 (<4.4); POTASSIUM 4.1 mmol/L (3.5-5.0); SODIUM 140 mmol/L (135-145); TOTAL PROTEIN 7.7 g/dL (6.7-8.2); TRIGLYCERIDES 113 mg/dL; VLDL CHOLESTEROL 23 mg/dL
[2021-04-01 12:42] LABS: THYROID STIMULATING HORMONE 2.16 uIU/mL (0.34-5.60)
[2021-04-01 12:47] LABS: CREATININE,URINE 159.9 mg/dL; MICROALBUM/CREATININE RATIO,UR 1.9 ug/mg (<30.0); MICROALBUMIN,URINE 0.3 mg/dL (0-300.0)
[2021-04-01 12:50] LABS: ESTIMATED AVERAGE GLUCOSE 166 mg/dL (70-100); HEMOGLOBIN A1c% 7.4 % (4.27-6.07)
== END 2021-04-01 23:59 | disposition home or self-care (01) ==
LOC: LAB.WCP 08:00
PROVIDERS: ATTEND Family Medicine
DX: E11.9 Type 2 diabetes mellitus without complications (principal)
CPT/HCPCS: 36415; 80053; 80061; 82043; 82570; 83036; 83721; 84443; 85025

== ENCOUNTER 2021-07-08 07:46 | Outpatient (CLI) | payer BC ==
[2021-07-08 11:47] LABS: BASOPHILS % (AUTO) 0.3 %; EOSINOPHILS # (AUTO) 0.3 10^3/uL (0.0-0.7); EOSINOPHILS % (AUTO) 2.5 %; HCT - HEMATOCRIT 43.6 % (37.0-47.0); HGB - HEMOGLOBIN 14.2 g/dL (12.0-16.0); LYMPHOCYTES # (AUTO) 2.9 10^3/uL (1.5-3.5); LYMPHOCYTES % (AUTO) 26.1 %; MEAN CORPUSCULAR HEMOGLOBIN 27.2 pg (27.0-31.0); MEAN CORPUSCULAR HGB CONC 32.6 g/dL (32.0-36.0); MEAN CORPUSCULAR VOLUME 83.5 fL (81.0-99.0); MEAN PLATELET VOLUME 12.2 fL (7.9-10.8); MONOCYTES # (AUTO) 0.7 10^3/uL (0.0-1.0); MONOCYTES % (AUTO) 6.6 %; NEUTROPHILS # (AUTO) 7.2 10^3/uL (1.5-6.6); NEUTROPHILS % (AUTO) 64.2 %; PLT - PLATELET COUNT 305 10^3/uL (130-450); RED BLOOD COUNT 5.22 10^6/uL (4.20-5.40); RED CELL DISTRIBUTION WIDTH 13.1 % (12.0-15.0); WHITE BLOOD COUNT 11.2 x10^3/uL (4.8-10.8)
[2021-07-08 12:12] LABS: ALBUMIN 4.1 g/dL (3.2-5.5); ALBUMIN/GLOBULIN RATIO 1.1 (1.0-2.2); ALKALINE PHOSPHATASE 87 IU/L (42-121); ALT ALANINE AMINOTRANSFERASE 58 IU/L (10-60); AST ASPARTATE AMINOTRANSFERASE 39 IU/L (10-42); BILIRUBIN,TOTAL 0.9 mg/dL (0.2-1.0); BUN - BLOOD UREA NITROGEN 13 mg/dL (6-20); CALCIUM 9.2 mg/dL (8.5-10.3); CARBON DIOXIDE - CO2 25 mmol/L (21-32); CHLORIDE 104 mmol/L (101-111); CHOL/HDL RATIO 5.2 (<4.4); CHOLESTEROL 223 mg/dL; CREATININE 0.7 mg/dL (0.4-1.0); GFR - MDRD 85 (>89); GLUCOSE 159 mg/dL (70-100); HDL CHOLESTEROL 43 mg/dL; LDL CHOLESTEROL,CALCULATED 153 mg/dL; LDL/HDL RATIO 3.6 (<4.4); SODIUM 141 mmol/L (135-145); TOTAL PROTEIN 7.9 g/dL (6.7-8.2); TRIGLYCERIDES 135 mg/dL; VLDL CHOLESTEROL 27 mg/dL
[2021-07-08 13:53] LABS: ESTIMATED AVERAGE GLUCOSE 177 mg/dL (70-100); HEMOGLOBIN A1c% 7.8 % (4.27-6.07)
== END 2021-07-08 07:47 | disposition home or self-care (01) ==
LOC: LAB.N 07:46
PROVIDERS: ATTEND Family Medicine
DX: E11.9 Type 2 diabetes mellitus without complications (principal)
CPT/HCPCS: 36415; 80053; 80061; 83036; 83721; 85025

== ENCOUNTER 2021-10-07 08:00 | Outpatient (CLI) | payer BC ==
[2021-10-07 12:01] LABS: BASOPHILS % (AUTO) 0.3 %; EOSINOPHILS # (AUTO) 0.3 10^3/uL (0.0-0.7); EOSINOPHILS % (AUTO) 2.6 %; HCT - HEMATOCRIT 41.6 % (37.0-47.0); HGB - HEMOGLOBIN 13.2 g/dL (12.0-16.0); LYMPHOCYTES # (AUTO) 2.2 10^3/uL (1.5-3.5); LYMPHOCYTES % (AUTO) 21.3 %; MEAN CORPUSCULAR HEMOGLOBIN 26.2 pg (27.0-31.0); MEAN CORPUSCULAR HGB CONC 31.7 g/dL (32.0-36.0); MEAN CORPUSCULAR VOLUME 82.5 fL (81.0-99.0); MEAN PLATELET VOLUME 12.2 fL (7.9-10.8); MONOCYTES # (AUTO) 0.6 10^3/uL (0.0-1.0); MONOCYTES % (AUTO) 6.1 %; NEUTROPHILS # (AUTO) 7.3 10^3/uL (1.5-6.6); NEUTROPHILS % (AUTO) 69.2 %; PLT - PLATELET COUNT 245 10^3/uL (130-450); RED BLOOD COUNT 5.04 10^6/uL (4.20-5.40); RED CELL DISTRIBUTION WIDTH 13.6 % (12.0-15.0); WHITE BLOOD COUNT 10.5 x10^3/uL (4.8-10.8)
[2021-10-07 12:25] LABS: THYROID STIMULATING HORMONE 2.03 uIU/mL (0.34-5.60)
[2021-10-07 12:26] LABS: ALBUMIN 3.8 g/dL (3.2-5.5); ALBUMIN/GLOBULIN RATIO 1.2 (1.0-2.2); ALKALINE PHOSPHATASE 75 IU/L (42-121); ALT ALANINE AMINOTRANSFERASE 56 IU/L (10-60); AST ASPARTATE AMINOTRANSFERASE 46 IU/L (10-42); BILIRUBIN,TOTAL 1.1 mg/dL (0.2-1.0); BUN - BLOOD UREA NITROGEN 14 mg/dL (6-20); CALCIUM 9.1 mg/dL (8.5-10.3); CARBON DIOXIDE - CO2 26 mmol/L (21-32); CHLORIDE 102 mmol/L (101-111); CHOL/HDL RATIO 5.5 (<4.4); CHOLESTEROL 210 mg/dL; CREATININE 0.7 mg/dL (0.4-1.0); GFR - MDRD 85 (>89); GLUCOSE 152 mg/dL (70-100); HDL CHOLESTEROL 38 mg/dL; LDL CHOLESTEROL,CALCULATED 149 mg/dL; LDL/HDL RATIO 3.9 (<4.4); POTASSIUM 3.7 mmol/L (3.5-5.0); SODIUM 140 mmol/L (135-145); TRIGLYCERIDES 113 mg/dL; VLDL CHOLESTEROL 23 mg/dL
[2021-10-07 12:40] LABS: ESTIMATED AVERAGE GLUCOSE 177 mg/dL (70-100); HEMOGLOBIN A1c% 7.8 % (4.27-6.07)
[2021-10-07 12:57] LABS: CREATININE,URINE 106.9 mg/dL; MICROALBUM/CREATININE RATIO,UR 4.7 ug/mg (<30.0); MICROALBUMIN,URINE 0.5 mg/dL (0-300.0)
== END 2021-10-07 23:59 ==
LOC: LAB.WCP 08:00
PROVIDERS: ATTEND Family Medicine
DX: E11.9 Type 2 diabetes mellitus without complications (principal)
CPT/HCPCS: 36415; 80053; 80061; 82043; 82570; 83036; 83721; 84443; 85025

== ENCOUNTER 2021-10-14 11:08 | Outpatient (CLI) | payer BC ==
--- NOTE | 2021-10-14 11:54 | XRAY Report ---
PROCEDURE: Hip w/Pelvis 2-3V LT INDICATIONS: CONGENITAL HIP DYSPLASIA,HIP PAIN LT TECHNIQUE: AP pelvis with lateral view(s) of the left hip(s). COMPARISON: None. FINDINGS: Bones: No fractures or dislocations. Pelvic ring appears intact. No suspicious bony lesions. No g ross congenital deformities are identified. Mild bilateral degenerative narrowing is present. No eros ions. Soft tissues: The visualized bowel gas pattern is normal. No suspicious soft tissue calcifications. IMPRESSION: Mild degenerative narrowing suggestive of arthritic change. Reviewed by: Peyton Palafox MD on 10/14/2021 11:53 AM [facility] Approved by: Peyton Palafox MD on 10/14/2021 11:53 AM [facility] Station ID: [id number]
== END 2021-10-14 11:09 | disposition home or self-care (01) ==
LOC: DI 11:08
PROVIDERS: ATTEND Family Medicine
DX: Q65.89 Other specified congenital deformities of hip (principal); M16.12 Unilateral primary osteoarthritis, left hip

== ENCOUNTER 2021-11-10 15:43 | Outpatient (CLI) | payer BC | END 2021-11-10 15:44 | disposition home or self-care (01) | LOC: CAM 15:43 | PROVIDERS: ATTEND Family Medicine | DX: M75.01 Adhesive capsulitis of right shoulder (principal); M79.601 Pain in right arm; M17.11 Unilateral primary osteoarthritis, right knee; M19.019 Primary osteoarthritis, unspecified shoulder; Q65.89 Other specified congenital deformities of hip; M25.552 Pain in left hip; M25.551 Pain in right hip | CPT/HCPCS: 97810; 97811 ==

== ENCOUNTER 2021-11-17 14:37 | Outpatient (CLI) | payer BC | END 2021-11-17 14:38 | disposition home or self-care (01) | LOC: CAM 14:37 | PROVIDERS: ATTEND Family Medicine | DX: M75.01 Adhesive capsulitis of right shoulder (principal); M79.601 Pain in right arm; M17.11 Unilateral primary osteoarthritis, right knee; M19.019 Primary osteoarthritis, unspecified shoulder; Q65.89 Other specified congenital deformities of hip; M25.552 Pain in left hip; M25.551 Pain in right hip | CPT/HCPCS: 97810; 97811 ==

== ENCOUNTER 2021-11-24 14:39 | Outpatient (CLI) | payer BC | END 2021-11-24 14:40 | disposition home or self-care (01) | LOC: CAM 14:39 | PROVIDERS: ATTEND Family Medicine | DX: M75.01 Adhesive capsulitis of right shoulder (principal); M79.601 Pain in right arm; M17.11 Unilateral primary osteoarthritis, right knee; M25.879 Other specified joint disorders, unspecified ankle and foot; M19.019 Primary osteoarthritis, unspecified shoulder; Q65.89 Other specified congenital deformities of hip; M25.552 Pain in left hip; M25.551 Pain in right hip | CPT/HCPCS: 97810; 97811 ==

== ENCOUNTER 2021-12-08 14:36 | Outpatient (CLI) | payer BC | END 2021-12-08 14:37 | disposition home or self-care (01) | LOC: CAM 14:36 | PROVIDERS: ATTEND Family Medicine | DX: M75.01 Adhesive capsulitis of right shoulder (principal); M79.601 Pain in right arm; M17.11 Unilateral primary osteoarthritis, right knee; M35.7 Hypermobility syndrome; M19.019 Primary osteoarthritis, unspecified shoulder; Q65.89 Other specified congenital deformities of hip; M25.552 Pain in left hip; M25.551 Pain in right hip | CPT/HCPCS: 97810; 97811 ==

== ENCOUNTER 2021-12-22 14:36 | Outpatient (CLI) | payer BC | END 2021-12-22 14:37 | disposition home or self-care (01) | LOC: CAM 14:36 | PROVIDERS: ATTEND Family Medicine | DX: M75.01 Adhesive capsulitis of right shoulder (principal); M79.601 Pain in right arm; M17.11 Unilateral primary osteoarthritis, right knee; M25.879 Other specified joint disorders, unspecified ankle and foot; M19.019 Primary osteoarthritis, unspecified shoulder; Q65.89 Other specified congenital deformities of hip; M25.551 Pain in right hip; M25.552 Pain in left hip | CPT/HCPCS: 97810; 97811 ==

== ENCOUNTER 2022-01-05 14:38 | Outpatient (CLI) | payer BC | END 2022-01-05 14:39 | disposition home or self-care (01) | LOC: CAM 14:38 | PROVIDERS: ATTEND Family Medicine | DX: M75.01 Adhesive capsulitis of right shoulder (principal); M79.601 Pain in right arm; M17.11 Unilateral primary osteoarthritis, right knee; M19.019 Primary osteoarthritis, unspecified shoulder; Q65.89 Other specified congenital deformities of hip; M25.552 Pain in left hip; M25.551 Pain in right hip | CPT/HCPCS: 97810; 97811 ==

== ENCOUNTER 2022-01-26 14:40 | Outpatient (CLI) | payer BC | END 2022-01-26 14:41 | disposition home or self-care (01) | LOC: CAM 14:40 | PROVIDERS: ATTEND Family Medicine | DX: M75.01 Adhesive capsulitis of right shoulder (principal); M79.601 Pain in right arm; M17.11 Unilateral primary osteoarthritis, right knee; M19.019 Primary osteoarthritis, unspecified shoulder | CPT/HCPCS: 97810; 97811 ==

== ENCOUNTER 2022-04-27 17:31 | Outpatient (CLI) | payer BC | END 2022-04-27 17:32 | disposition home or self-care (01) | LOC: LAB 17:31 | PROVIDERS: ATTEND Nurse Practitioner Family | DX: R19.7 Diarrhea, unspecified (principal) | CPT/HCPCS: 36415; 81599; 86003 ==

== ENCOUNTER 2022-05-06 14:27 | Outpatient (CLI) | payer BC ==
--- NOTE | 2022-05-06 17:53 | DEXA Report ---
PROCEDURE: Dexa Spine and/or Hip INDICATIONS: POST MENOPAUSAL TECHNIQUE: Dual energy x-ray absorptiometry (DXA) was performed on a [employer] System. Regions measur ed are the AP Spine, femoral neck, and if needed forearm. COMPARISON: None. FINDINGS: Lumbar Spine: Bone Mineral Density 1.400 g/cm/cm,T score 1.8. Left Hip: Bone Mineral Density 1.084 g/cm/cm,T score 0.6. Left Femoral Neck: Bone Mineral Density 0.968 g/cm/cm, T score -0.5. (T score greater or equal to -1.0: NORMAL) (T score from -1.1 to -2.4: OSTEOPENIA) (T score less than or equal to -2.5 to: OSTEOPOROSIS) Impression: Normal bone mineral density. Patients with diagnosis of osteoporosis or osteopenia should have regular bone mineral density assess ment. For those eligible for Medicare, routine testing is allowed once every 2 years. Testing frequ ency can be increased for patients who have rapidly progressing disease or for those who are receivin g medical therapy to restore bone mass. Reviewed by: Jerome Perez MD on 05/06/2022 5:52 PM PDT Approved by: Jerome Perez MD on 05/06/2022 5:52 PM PDT Station ID: [id number]
== END 2022-05-06 14:28 | disposition home or self-care (01) ==
LOC: DI 14:27
PROVIDERS: ATTEND Nurse Practitioner Family
DX: Z78.0 Asymptomatic menopausal state (principal)

== ENCOUNTER 2022-05-18 14:36 | Outpatient (CLI) | payer BC | END 2022-05-18 14:37 | disposition home or self-care (01) | LOC: CAM 14:36 | PROVIDERS: ATTEND Family Medicine | DX: M75.01 Adhesive capsulitis of right shoulder (principal); M79.601 Pain in right arm; M17.11 Unilateral primary osteoarthritis, right knee; M19.019 Primary osteoarthritis, unspecified shoulder; M25.879 Other specified joint disorders, unspecified ankle and foot; Q65.89 Other specified congenital deformities of hip; M25.552 Pain in left hip; M25.551 Pain in right hip | CPT/HCPCS: 97813; 97814 ==

== ENCOUNTER 2022-07-21 07:05 | Outpatient (CLI) | payer BC ==
[2022-07-21 12:41] LABS: BASOPHILS % (AUTO) 0.4 %; EOSINOPHILS # (AUTO) 0.3 10^3/uL (0.0-0.7); EOSINOPHILS % (AUTO) 2.7 %; HCT - HEMATOCRIT 40.7 % (37.0-47.0); HGB - HEMOGLOBIN 13.3 g/dL (12.0-16.0); LYMPHOCYTES # (AUTO) 2.7 10^3/uL (1.5-3.5); LYMPHOCYTES % (AUTO) 25.4 %; MEAN CORPUSCULAR HEMOGLOBIN 26.8 pg (27.0-31.0); MEAN CORPUSCULAR HGB CONC 32.7 g/dL (32.0-36.0); MEAN CORPUSCULAR VOLUME 82.1 fL (81.0-99.0); MEAN PLATELET VOLUME 12.3 fL (7.9-10.8); MONOCYTES # (AUTO) 0.7 10^3/uL (0.0-1.0); MONOCYTES % (AUTO) 6.5 %; NEUTROPHILS # (AUTO) 6.8 10^3/uL (1.5-6.6); NEUTROPHILS % (AUTO) 64.7 %; PLT - PLATELET COUNT 257 10^3/uL (130-450); RED BLOOD COUNT 4.96 10^6/uL (4.20-5.40); RED CELL DISTRIBUTION WIDTH 13.6 % (12.0-15.0); WHITE BLOOD COUNT 10.5 x10^3/uL (4.8-10.8)
[2022-07-21 12:50] LABS: MICROALBUM/CREATININE RATIO,UR 4.2 ug/mg (<30.0)
[2022-07-21 12:58] LABS: ALBUMIN/GLOBULIN RATIO 1.3 (1.0-2.2); ALKALINE PHOSPHATASE 66 IU/L (42-121); ALT ALANINE AMINOTRANSFERASE 46 IU/L (10-60); AST ASPARTATE AMINOTRANSFERASE 52 IU/L (10-42); BILIRUBIN,TOTAL 0.8 mg/dL (0.2-1.0); BUN - BLOOD UREA NITROGEN 12 mg/dL (6-20); CALCIUM 9.4 mg/dL (8.5-10.3); CARBON DIOXIDE - CO2 26 mmol/L (21-32); CHLORIDE 104 mmol/L (101-111); CHOL/HDL RATIO 3.9 (<4.4); CHOLESTEROL 139 mg/dL; CREATININE 0.6 mg/dL (0.4-1.0); GFR - MDRD 101 (>89); GLUCOSE 146 mg/dL (70-100); HDL CHOLESTEROL 36 mg/dL; LDL CHOLESTEROL,CALCULATED 81 mg/dL; LDL/HDL RATIO 2.3 (<4.4); POTASSIUM 3.9 mmol/L (3.5-5.0); SODIUM 140 mmol/L (135-145); TOTAL PROTEIN 7.2 g/dL (6.7-8.2); TRIGLYCERIDES 109 mg/dL; VLDL CHOLESTEROL 22 mg/dL
[2022-07-21 13:48] LABS: ESTIMATED AVERAGE GLUCOSE 157 mg/dL (70-100); HEMOGLOBIN A1c% 7.1 % (4.27-6.07)
== END 2022-07-21 07:06 | disposition home or self-care (01) ==
LOC: LAB.N 07:05
PROVIDERS: ATTEND Nurse Practitioner Family
DX: E11.9 Type 2 diabetes mellitus without complications (principal)
CPT/HCPCS: 36415; 80053; 80061; 82043; 82570; 83036; 83721; 85025

== ENCOUNTER 2022-08-17 13:33 | Outpatient (CLI) | payer BC ==
--- NOTE | 2022-08-18 11:33 | Mammography Report ---
BILATERAL DIGITAL SCREENING MAMMOGRAM 3D/2D: 08/17/2022 CLINICAL: Routine screening. Comparison is made to exams dated: 01/28/2021 mammogram, 11/10/2019 mammogram, 10/26/2018 mammogram, 05/12/2017 mammogram - [facility], and 07/24/2015 mammogram - [facility]. There are scattered areas of fibroglandular density in both breasts (category b / 25%-50% glandular t issue). There are benign calcifications in both breasts. There also are benign post operative findings in sherri th breasts. No significant masses, calcifications, or other findings are seen in either breast. There has been no significant interval change. IMPRESSION: BENIGN There is no mammographic evidence of malignancy. A 1 year screening mammogram is recommended. Based on the Tyrer Cuzick model (a risk assessment model) the patients lifetime risk is 12.3% and he r 10 year risk is 5.4%. According to the ACR, ACS, and NCCN guidelines, an annual breast MRI exam aurea ng with mammogram is recommended if the patients lifetime risk is 20% or greater. This exam was interpreted at Station ID: [id number]. NOTE: For mammograms, a report in lay terms will be sent to the patient. Approximately 15% of breast malignancies will not be visualized mammographically. In the management of a palpable breast mass, a negative mammogram must not discourage biopsy of a clinically suspicious lesion. Electronically Signed By: Mina Leonard M.D. acr/penrad:08/17/2022 15:28:12 ACR BI-RADS Category 2: Benign Finding(s) 3342F PARENCHYMAL PATTERN: (A) - The breast(s) demonstrate(s) scattered fibroglandular densities. BI-RADS CATEGORY: (2) - 2 RECOMMENDATION: (ANNUAL) - Recommend routine annual screening mammography. [id number] 1 year screening LATERALITY: (B)
== END 2022-08-17 13:34 | disposition home or self-care (01) ==
LOC: DI 13:33
PROVIDERS: ATTEND Nurse Practitioner Family
DX: Z12.31 Encounter for screening mammogram for malignant neoplasm of breast (principal)

== ENCOUNTER 2022-08-24 15:28 | Outpatient (CLI) | payer BC | END 2022-08-24 15:29 | disposition home or self-care (01) | LOC: CAM 15:28 | PROVIDERS: ATTEND Family Medicine | DX: M75.01 Adhesive capsulitis of right shoulder (principal); M79.601 Pain in right arm; Q65.89 Other specified congenital deformities of hip; M25.552 Pain in left hip; M25.551 Pain in right hip; M17.9 Osteoarthritis of knee, unspecified; R29.898 Other symptoms and signs involving the musculoskeletal system; M17.11 Unilateral primary osteoarthritis, right knee; M19.019 Primary osteoarthritis, unspecified shoulder | CPT/HCPCS: 97813; 97814 ==

== ENCOUNTER 2023-02-26 07:05 | Outpatient (CLI) | payer BC ==
[2023-02-26 12:38] LABS: ALBUMIN 4.1 g/dL (3.2-5.5); ALBUMIN/GLOBULIN RATIO 1.1 (1.0-2.2); BILIRUBIN,TOTAL 0.8 mg/dL (0.2-1.0); CALCIUM 9.2 mg/dL (8.5-10.3); CREATININE 0.6 mg/dL (0.4-1.0); MAGNESIUM 1.9 mg/dL (1.7-2.8); POTASSIUM 3.9 mmol/L (3.5-5.0); TOTAL PROTEIN 7.7 g/dL (6.7-8.2)
[2023-02-26 12:44] LABS: ESTIMATED AVERAGE GLUCOSE 192 mg/dL (70-100); HEMOGLOBIN A1c% 8.3 % (4.27-6.07)
[2023-02-26 12:59] LABS: CREATININE,URINE 143.8 mg/dL; MICROALBUM/CREATININE RATIO,UR 10.4 ug/mg (<30.0); MICROALBUMIN,URINE 1.5 mg/dL (0-300.0)
== END 2023-02-26 07:06 | disposition home or self-care (01) ==
LOC: LAB.N 07:05
PROVIDERS: ATTEND Nurse Practitioner Family
DX: I10 Essential (primary) hypertension (principal); E11.9 Type 2 diabetes mellitus without complications; K21.9 Gastro-esophageal reflux disease without esophagitis; Z79.899 Other long term (current) drug therapy
CPT/HCPCS: 36415; 80053; 82043; 82570; 83036; 83735

== ENCOUNTER 2023-07-05 07:04 | Outpatient (CLI) | payer BC ==
[2023-07-05 13:24] LABS: ESTIMATED AVERAGE GLUCOSE 171 mg/dL (70-100); HEMOGLOBIN A1c% 7.6 % (4.27-6.07)
[2023-07-05 13:30] LABS: CHOL/HDL RATIO 4.7 (<4.4); CHOLESTEROL 192 mg/dL; HDL CHOLESTEROL 41 mg/dL; LDL CHOLESTEROL,CALCULATED 124 mg/dL; TRIGLYCERIDES 136 mg/dL (48-352); VLDL CHOLESTEROL 27 mg/dL
== END 2023-07-05 07:05 | disposition home or self-care (01) ==
LOC: LAB.N 07:04
PROVIDERS: ATTEND Nurse Practitioner Family
DX: E78.5 Hyperlipidemia, unspecified (principal); E11.65 Type 2 diabetes mellitus with hyperglycemia
CPT/HCPCS: 36415; 80061; 83036; 83721

== ENCOUNTER 2023-07-14 17:39 | Outpatient (CLI) | payer BC ==
[2023-07-14 20:53] LABS: THYROID STIMULATING HORMONE 2.66 uIU/mL (0.34-5.60)
== END 2023-07-14 17:40 | disposition home or self-care (01) ==
LOC: LAB.N 17:39
PROVIDERS: ATTEND Nurse Practitioner Family
DX: E03.9 Hypothyroidism, unspecified (principal)
CPT/HCPCS: 36415; 84443

== ENCOUNTER 2023-07-20 17:51 | Outpatient (CLI) | payer BC ==
[2023-07-20 21:20] LABS: BASOPHILS % (AUTO) 0.3 %; EOSINOPHILS # (AUTO) 0.4 10^3/uL (0.0-0.7); EOSINOPHILS % (AUTO) 3.1 %; HCT - HEMATOCRIT 40.8 % (37.0-47.0); HGB - HEMOGLOBIN 12.9 g/dL (12.0-16.0); LYMPHOCYTES # (AUTO) 3.8 10^3/uL (1.5-3.5); LYMPHOCYTES % (AUTO) 27.7 %; MEAN CORPUSCULAR HEMOGLOBIN 25.4 pg (27.0-31.0); MEAN CORPUSCULAR HGB CONC 31.6 g/dL (32.0-36.0); MEAN CORPUSCULAR VOLUME 80.5 fL (81.0-99.0); MEAN PLATELET VOLUME 12.1 fL (7.9-10.8); MONOCYTES # (AUTO) 1.1 10^3/uL (0.0-1.0); MONOCYTES % (AUTO) 7.8 %; NEUTROPHILS # (AUTO) 8.4 10^3/uL (1.5-6.6); NEUTROPHILS % (AUTO) 60.9 %; PLT - PLATELET COUNT 318 10^3/uL (130-450); RED BLOOD COUNT 5.07 10^6/uL (4.20-5.40); RED CELL DISTRIBUTION WIDTH 14.2 % (12.0-15.0); WHITE BLOOD COUNT 13.8 x10^3/uL (4.8-10.8)
[2023-07-20 21:29] LABS: ALBUMIN 3.8 g/dL (3.2-5.5); BILIRUBIN,TOTAL 0.5 mg/dL (0.2-1.0); CREATININE 0.7 mg/dL (0.4-1.0); POTASSIUM 3.6 mmol/L (3.5-5.0); TOTAL PROTEIN 7.5 g/dL (6.7-8.2)
== END 2023-07-20 17:52 | disposition home or self-care (01) ==
LOC: LAB.N 17:51
PROVIDERS: ATTEND Nurse Practitioner Family
DX: I10 Essential (primary) hypertension (principal)
CPT/HCPCS: 36415; 80053; 82088; 84244; 85025

== ENCOUNTER 2023-08-23 10:48 | Outpatient (CLI) | payer BC ==
--- NOTE | 2023-08-24 09:37 | Mammography Report ---
BILATERAL DIGITAL SCREENING MAMMOGRAM 3D/2D: 08/23/2023 CLINICAL: Routine screening. Comparison is made to exams dated: 08/17/2022 mammogram, 01/28/2021 mammogram, 11/10/2019 mammogram, mammogram, 05/12/2017 mammogram - [facility], and 07/24/2015 mammogram - [facility]. There are scattered areas of fibroglandular density in both breasts (category b / 25%-50% glandular t issue). There are benign calcifications in both breasts. There also are benign post operative findings in sherri th breasts. No significant masses, calcifications, or other findings are seen in either breast. There has been no significant interval change. IMPRESSION: BENIGN There is no mammographic evidence of malignancy. A 1 year screening mammogram is recommended. Based on the Tyrer Cuzick model (a risk assessment model) the patients lifetime risk is 11.9% and he r 10 year risk is 5.4%. According to the ACR, ACS, and NCCN guidelines, an annual breast MRI exam aurea ng with mammogram is recommended if the patients lifetime risk is 20% or greater. This exam was interpreted at Station ID: [id number]. NOTE: For mammograms, a report in lay terms will be sent to the patient. Approximately 15% of breast malignancies will not be visualized mammographically. In the management of a palpable breast mass, a negative mammogram must not discourage biopsy of a clinically suspicious lesion. Electronically Signed By: Pita levine/marcus:08/23/2023 17:06:10 letter sent: No_Letter ACR BI-RADS Category 2: Benign Finding(s) 3342F PARENCHYMAL PATTERN: (A) - The breast(s) demonstrate(s) scattered fibroglandular densities. BI-RADS CATEGORY: (2) - 2 Mammogram [id number] 1 year screening LATERALITY: (B)
== END 2023-08-23 10:49 | disposition home or self-care (01) ==
LOC: DI.N 10:48
DX: Z12.31 Encounter for screening mammogram for malignant neoplasm of breast (principal); R92.323 Mammographic fibroglandular density, bilateral breasts

== ENCOUNTER 2023-09-18 12:45 | Outpatient (CLI) | payer BC ==
--- NOTE | 2023-09-18 23:51 | Ultrasound Report ---
PROCEDURE: Head or Neck Soft Tissue INDICATIONS: SUBMANDIBULAR MASS TECHNIQUE: Real-time scanning was performed of the neck, with image documentation. Color Doppler ultrasound was also utilized. COMPARISON: None FINDINGS: An area of clinical concern within the right submandibular region, there is a hypoechoic f ocus with internal vascularity that measures 15 x 11 x 10 mm. Within this region, there is a level 3 cervical lymph node seen that measures 2.3 x 2.2 x 1 cm. IMPRESSION: At the area of palpable concern within the right submandibular region, there is a hypoechoic nodule w ith internal vascularity that measures up to 15 mm. Differential diagnosis includes an abnormal lymph node versus a mass. There is a prominent lymph node seen adjacent to this area at level 3. The appearance is concerning f or a metastatic lymph node. A dedicated soft tissue neck protocol CT with IV contrast is now recommended for further evaluation i n a patient of this age. Reviewed by: Jong Zhou MD on 09/18/2023 10:50 PM [facility] Approved by: Jong Zhou MD on 09/18/2023 10:50 PM [facility] Station ID: [id number]
== END 2023-09-18 12:46 | disposition home or self-care (01) ==
LOC: DI 12:45
PROVIDERS: ATTEND Nurse Practitioner Family
DX: R59.0 Localized enlarged lymph nodes (principal); I10 Essential (primary) hypertension; D72.829 Elevated white blood cell count, unspecified
CPT/HCPCS: 36415; 82088; 82607; 82746; 84244; 85025

== ENCOUNTER 2023-09-18 13:06 | Outpatient (CLI) | payer BC ==
[2023-09-18 13:41] LABS: BASOPHILS # (AUTO) 0.1 10^3/uL (0.0-0.1); BASOPHILS % (AUTO) 0.4 %; EOSINOPHILS # (AUTO) 0.5 10^3/uL (0.0-0.7); EOSINOPHILS % (AUTO) 3.8 %; HCT - HEMATOCRIT 44.5 % (37.0-47.0); HGB - HEMOGLOBIN 13.8 g/dL (12.0-16.0); LYMPHOCYTES # (AUTO) 2.5 10^3/uL (1.5-3.5); LYMPHOCYTES % (AUTO) 20.8 %; MEAN CORPUSCULAR HEMOGLOBIN 24.6 pg (27.0-31.0); MEAN CORPUSCULAR VOLUME 79.2 fL (81.0-99.0); MEAN PLATELET VOLUME 10.9 fL (7.9-10.8); MONOCYTES # (AUTO) 0.9 10^3/uL (0.0-1.0); NEUTROPHILS # (AUTO) 8.3 10^3/uL (1.5-6.6); NEUTROPHILS % (AUTO) 67.7 %; PLT - PLATELET COUNT 290 10^3/uL (130-450); RED BLOOD COUNT 5.62 10^6/uL (4.20-5.40); RED CELL DISTRIBUTION WIDTH 14.2 % (12.0-15.0); WHITE BLOOD COUNT 12.2 x10^3/uL (4.8-10.8)
== END 2023-09-18 13:07 | disposition home or self-care (01) ==
LOC: LAB 13:06
PROVIDERS: ATTEND Internal Medicine Cardiovascular Disease
DX: I10 Essential (primary) hypertension (principal); R71.8 Other abnormality of red blood cells; D72.829 Elevated white blood cell count, unspecified
CPT/HCPCS: 36415; 82088; 82607; 82746; 84244; 85025

== ENCOUNTER 2023-09-25 09:53 | Outpatient (CLI) | payer BC ==
[2023-09-25 10:27] LABS: CREATININE 0.8 mg/dL (0.6-1.3)
[2023-09-25] MEDS ORDERED: iohexoL-300 100 ML VIAL IVP ONE (11:39)
--- NOTE | 2023-09-25 14:19 | CT Report ---
PROCEDURE: SOFT TISSUE NECK W INDICATIONS: SUBMANDIBULAR MASS CONTRAST: 100ml omni 300 TECHNIQUE: After the administration of intravenous contrast, 3.0 mm axial sections acquired from the sella to th e aortic arch. Additional oblique axial 3.0 mm sections acquired through the pharynx. 3 mm thick co judson reformats were generated. For radiation dose reduction, the following was used: automated exp osure control, adjustment of mA and/or kV according to patient size. COMPARISON: Ultrasound September 18, 2023 FINDINGS: Image quality: Excellent. Beneath the right mandible anterior to the submandibular salivary gland there is a rounded lymph node versus mass measuring 1.2 x 0.1 x 1 cm correlating with the ultrasound findings. The fatty hilus is not well visualized by CT. There is a corresponding normal-appearing lymph node on the contralateral side. Within level 3 there is a 2.3 cm lymph node in the long axis with unremarkable morphology with a contralateral lymph node measuring 2.5 cm in similar position. Vessels: Visualized vasculature appears patent. Neck spaces: The oropharynx, nasopharynx, and pharynx demonstrate no mucosal lesions. The vocal cor ds, false vocal cords, pyriform sinuses, epiglottis, vallecula, and tongue base all appear normal. E xtramucosal spaces appear unremarkable. Glands: The parotid and submandibular glands appear normal. The thyroid is normal in size and there are no incidental findings. Miscellaneous: Visualized brain and orbits appear normal. Lung apices appear clear. Superficial so ft tissues appear normal. Bones: No suspicious bony lesions. Visualized sinuses and mastoids appear unremarkable. IMPRESSION: Right submandibular mass measuring 1.2 cm may reflect physiologic reaction of a submandibular lymph n ode however the rounded morphology raises concern for possible mass. If pathologic correlation is not obtained consider interval follow-up imaging Reviewed by: Fahad Jimenez MD on 09/25/2023 1:18 PM [place] Approved by: Fahad Jimenez MD on 09/25/2023 1:18 PM [facility] Station ID: [id number]
== END 2023-09-25 09:54 | disposition home or self-care (01) ==
LOC: LAB 09:53
PROVIDERS: ATTEND Nurse Practitioner Family
DX: R22.0 Localized swelling, mass and lump, head (principal)
CPT/HCPCS: 36415; 70491; 82565; Q9967

== ENCOUNTER 2023-10-04 14:13 | Outpatient (CLI) | payer BC ==
[2023-10-04 18:04] LABS: BASOPHILS # (AUTO) 0.1 10^3/uL (0.0-0.1); BASOPHILS % (AUTO) 0.3 %; EOSINOPHILS # (AUTO) 0.5 10^3/uL (0.0-0.7); EOSINOPHILS % (AUTO) 3.1 %; HGB - HEMOGLOBIN 13.4 g/dL (12.0-16.0); LYMPHOCYTES # (AUTO) 3.6 10^3/uL (1.5-3.5); LYMPHOCYTES % (AUTO) 24.7 %; MEAN CORPUSCULAR HEMOGLOBIN 24.4 pg (27.0-31.0); MEAN CORPUSCULAR HGB CONC 29.8 g/dL (32.0-36.0); MEAN PLATELET VOLUME 12.5 fL (7.9-10.8); MONOCYTES # (AUTO) 1.1 10^3/uL (0.0-1.0); MONOCYTES % (AUTO) 7.6 %; NEUTROPHILS # (AUTO) 9.2 10^3/uL (1.5-6.6); PLT - PLATELET COUNT 338 10^3/uL (130-450); RED BLOOD COUNT 5.49 10^6/uL (4.20-5.40); RED CELL DISTRIBUTION WIDTH 14.4 % (12.0-15.0); WHITE BLOOD COUNT 14.4 x10^3/uL (4.8-10.8)
== END 2023-10-04 14:14 | disposition home or self-care (01) ==
LOC: LAB.N 14:13
PROVIDERS: ATTEND Nurse Practitioner Family
DX: R71.8 Other abnormality of red blood cells (principal); D72.829 Elevated white blood cell count, unspecified
CPT/HCPCS: 36415; 82607; 82746; 85025

== ENCOUNTER 2023-10-09 13:36 | Outpatient (CLI) | payer BC ==
[2023-10-09 14:13] LABS: BASOPHILS % (AUTO) 0.3 %; EOSINOPHILS # (AUTO) 0.3 10^3/uL (0.0-0.7); HCT - HEMATOCRIT 42.4 % (37.0-47.0); HGB - HEMOGLOBIN 12.7 g/dL (12.0-16.0); LYMPHOCYTES # (AUTO) 2.7 10^3/uL (1.5-3.5); LYMPHOCYTES % (AUTO) 23.3 %; MEAN CORPUSCULAR HEMOGLOBIN 24.5 pg (27.0-31.0); MEAN CORPUSCULAR VOLUME 81.9 fL (81.0-99.0); MEAN PLATELET VOLUME 11.7 fL (7.9-10.8); MONOCYTES # (AUTO) 0.8 10^3/uL (0.0-1.0); NEUTROPHILS # (AUTO) 7.6 10^3/uL (1.5-6.6); NEUTROPHILS % (AUTO) 66.2 %; PLT - PLATELET COUNT 255 10^3/uL (130-450); RED BLOOD COUNT 5.18 10^6/uL (4.20-5.40); WHITE BLOOD COUNT 11.5 x10^3/uL (4.8-10.8)
== END 2023-10-09 13:37 | disposition home or self-care (01) ==
LOC: LAB 13:36
PROVIDERS: ATTEND Nurse Practitioner Family
DX: R93.89 Abnormal findings on diagnostic imaging of other specified body structures (principal)
CPT/HCPCS: 36415; 85025

== ENCOUNTER 2024-01-31 15:40 | Outpatient (CLI) | payer BC, OTHER ==
[2024-01-31 17:57] LABS: BUN - BLOOD UREA NITROGEN 23 mg/dL (6-20); CALCIUM 9.8 mg/dL (8.5-10.3); CARBON DIOXIDE - CO2 24 mmol/L (21-32); CHLORIDE 102 mmol/L (101-111); CHOL/HDL RATIO 4.8 (<4.4); CHOLESTEROL 176 mg/dL; CREATININE 1.1 mg/dL (0.6-1.3); GFR - MDRD 50 (>89); GLUCOSE 142 mg/dL (74-104); HDL CHOLESTEROL 37 mg/dL; LDL CHOLESTEROL,CALCULATED 108 mg/dL; LDL/HDL RATIO 2.9 (<4.4); SODIUM 137 mmol/L (135-145); TRIGLYCERIDES 156 mg/dL (48-352); VLDL CHOLESTEROL 31 mg/dL
[2024-01-31 20:11] LABS: ESTIMATED AVERAGE GLUCOSE 166 mg/dL (70-100); HEMOGLOBIN A1c% 7.4 % (4.27-6.07)
== END 2024-01-31 15:41 | disposition home or self-care (01) ==
LOC: LAB.N 15:40
PROVIDERS: ATTEND Nurse Practitioner Family
DX: E11.65 Type 2 diabetes mellitus with hyperglycemia (principal); E78.5 Hyperlipidemia, unspecified
CPT/HCPCS: 36415; 80048; 80061; 83036; 83721

== ENCOUNTER 2024-02-06 09:36 | Outpatient (CLI) | payer BC ==
--- NOTE | 2024-02-06 11:40 | XRAY Report ---
PROCEDURE: Shoulder 2+V LT INDICATIONS: SHOULDER IMPINGEMENT SYNDROME TECHNIQUE: 3 views of the shoulder were acquired. COMPARISON: None. FINDINGS: Bones: No fractures or dislocations. Moderate acromioclavicular joint and osteophytic changes are no verónica with joint space narrowing, subchondral sclerosis and downward osteophyte formation. Hyqk-qz-vbsd rate glenohumeral joint osteoarthritis is also seen. No suspicious bony lesions. Visualized ribs byron ear intact. Soft tissues : There are linear calcification adjacent to greater tuberosity of humeral head is seen at distal supraspinatus insertion. The visualized lungs are within normal limits. IMPRESSION: No acute bony abnormality. Moderate acromioclavicular joint and ajkh-yw-fjircvbr glenohumeral joint o steoarthritis. Suggestion of calcific tendinitis involving distal supraspinatus insertion on humeral head. Reviewed by: Jerome Perez MD on 02/06/2024 11:38 AM PDT Approved by: Jerome Perez MD on 02/06/2024 11:38 AM PDT Station ID: [id number]
== END 2024-02-06 09:37 | disposition home or self-care (01) ==
LOC: DI 09:36
PROVIDERS: ATTEND Nurse Practitioner Family
DX: M75.42 Impingement syndrome of left shoulder (principal); M19.012 Primary osteoarthritis, left shoulder

== ENCOUNTER 2024-08-05 07:01 | Outpatient (CLI) | payer BC ==
[2024-08-05 11:23] LABS: ESTIMATED AVERAGE GLUCOSE 163 mg/dL (70-100); HEMOGLOBIN A1c% 7.3 % (4.27-6.07)
== END 2024-08-05 07:02 | disposition home or self-care (01) ==
LOC: LAB 07:01
PROVIDERS: ATTEND Nurse Practitioner Family
DX: E11.65 Type 2 diabetes mellitus with hyperglycemia (principal)
CPT/HCPCS: 36415; 83036